=== PATIENT | female | born 1975 | race Caucasian/White ===

== ENCOUNTER → 2016-06-13 | Outpatient (CLI) | payer OTHER ==
--- NOTE | 2016-06-13 16:00 | REP ---
Clinical: Trauma to third digit. Technique: AP, lateral, bilateral oblique views of the right third digit. Findings: There is a nondisplaced fracture involving the terminal tuft which should be correlated clinically. Overlying soft tissue swelling suggested. No subcutaneous emphysema. Remainder of the osseous structures and joint spaces are intact. Impression: Nondisplaced fracture involving the terminal tuft 3rd digit. Signed by Nic Muñoz MD 06/13/2016 03:52 P
== END ==
LOC: M LRY 15:34
PROVIDERS: ATTEND Physician Assistant
DX: S62.662A Nondisplaced fracture of distal phalanx of right middle finger, initial encounter for closed fracture (principal); X58.XXXA Exposure to other specified factors, initial encounter; Y92.9 Unspecified place or not applicable

== ENCOUNTER 2016-06-22 08:49 | Emergency (ER) | payer OTHER ==
--- NOTE | 2016-06-22 09:45 | EDDOCDS ---
Nurse's Notes [facility] Name: Lucrecia So Age: 40 yrs Sex: Female : 1975 Arrival Date: 06/22/2016 Time: 08:49 Bed Triage 2 Private MD: Will Martínez MD Diagnosis: Nondisplaced fracture of distal phalanx of right middle finger-subsequent encounter Presentation: 06/22 08:56 Presenting complaint: Patient states: Worsening pain with numbness extending from right dwg middle finger down into right hand, broke right hand 06/13/16. Adult Sepsis Screening: The patient does not have new or worsening altered mentation. Patient's respiratory rate is less than 22. Systolic blood pressure is greater than 100. Patient has a qSOFA score of 0- Negative Sepsis Screen. Suicide/Homicide risk assessment- the patient denies having any suicidal and/or homicidal ideations and does not present with any other emotional, behavioral or mental health complaints. Status: The patient is a dependent. Transition of care: patient was not received from another setting of care. 08:56 Acuity: ANNI Level 4 dwg 08:56 Method Of Arrival: Walkin/Carried/Asstd dwg Triage Assessment: 09:05 General: Appears in no apparent distress, uncomfortable. Pain: Pain currently is 7 out dwg of 10 on a pain scale. HIV screening NA for this visit Offered previously. 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 aspirin 81 mg Oral tab 1 tab once daily (Last dose: 06/21/2016 20:00) 2. Calcium + Vitamin D 600 mg calcium- 200 unit Oral tab daily (Last dose: 06/21/2016) 3. Flexeril 5 mg Oral tab 1 tab 3 times per day (Last dose: 06/20/2016) 4. Motrin 800 mg Oral tab 1 tab 3 times per day as needed (Last dose: 06/21/2016) 5. Tylenol 325 mg Oral tab 2 tabs as needed (Last dose: 06/21/2016) - PMHx: Lui's Palsy; TIA; Fibromyalgia; - PSHx: Hysterectomy; Cholecystectomy; Repair of deviated septum; Fusion C-5 C-6; Discectomy L1 L2; Breast augmentation; - Social history: Smoking status: Patient uses tobacco products, current every day smoker. No barriers to communication noted, The patient speaks fluent Armenian. - Family history: Not pertinent. - : The pt / caregiver states he / she is not on anticoagulants. Home medication list is obtained from the patient. - Exposure Risk Screening:: None identified. Screenin:43 Screening information is obtained from the patient. Fall risk: No risks identified. dw Assistance ADL's: requires no assistance with activities of daily living. Abuse/DV Screen: The patient / caregiver reports he/she is: not in a situation that causes fear, pain or injury. Nutritional screening: No deficits noted. Advance Directives: Currently, there is no health care proxy. There is no active DNR order. There is no living will. There is no Power of Illusionist. Advance directive information has not previously been placed in an [facility] medical record. Further advance directive information is declined. home support is adequate. Assessment: 09:42 General: Appears in no apparent distress, uncomfortable, Behavior is cooperative, dwg pleasant. Pain: Pain currently is 8 out of 10 on a pain scale. Neurological: Level of Consciousness is awake, alert, Oriented to person, place, time. Respiratory: Airway is patent Respiratory effort is even, unlabored, Respiratory pattern is regular, symmetrical. Musculoskeletal: Circulation, motion, and sensation intact Capillary refill < 3 seconds Range of motion limited in DIP of left middle finger and PIP of left middle finger Swelling and pain to right middle finger. Vital Signs: 09:05 BP 144 / 84; Pulse 84; Resp 16; Temp 98.0(T); Pulse Ox 98% on R/A; Weight 64.41 kg; g Height 5 ft. 7 in. (170.18 cm); Pain 8/10; 09:05 Body Mass Index 22.24 (64.41 kg, 170.18 cm) [facility] Vitals: 09:05 Log In Time: June 22, 2016 at 08:47. [facility] ED Course: 08:51 Patient visited by Jovany Hicks. mm15 08:51 Patient moved to Waiting mm15 08:52 Will Martínez is Private Physician. mm15 08:53 Patient moved to Triage 2 [facility] 09:00 Triage Initiated dwg 09:03 [facility] ar2 09:03 Sumeet Mary MD is Attending Physician. ar2 09:03 Patient visited by Fernando Mitchell PA-C. ar2 09:39 [facility] Payment Agreement was scanned into [employer] and attached to record. mm15 09:44 The patient / caregiver is instructed regarding the plan of care and ED course. dwg 09:44 No IV's were initiated during this patient's visit. No procedures done that require dwg assistance. Order Results: There are currently no results for this order. Outcome: 09:18 Discharge ordered by Provider. ar2 09:43 Discharge Assessment: Patient awake, alert and oriented x 3. No cognitive and/or dwg functional deficits noted. Patient verbalized understanding of disposition instructions. patient administered narcotics - no. The following High Risk Discharge criteria are identified: None. Discharged to home ambulatory. Condition: good Condition: stable. No special radiology studies were completed. Property sent home with patient. 09:45 Patient left the ED. dwg Signatures: Adryan Vaughn RN RN dwg Fernando Mitchell PA-C PA-C ar2 Jovany Hicks mm15 MTDIveth
--- NOTE | 2016-06-22 09:45 | EDDOCDS ---
Physician Documentation [facility] Name: Lucrecia So Age: 40 yrs Sex: Female : 1975 Arrival Date: 06/22/2016 Time: 08:49 Bed Triage 2 Private MD: Will Martínez MD Disposition: 06/22/16 09:18 Discharged to Home/Self Care. Impression: Nondisplaced fracture of distal phalanx of right middle finger - subsequent encounter. - Condition is Stable. - Discharge Instructions: Finger Fracture. - Prescriptions for Ultram 50 mg Oral Tablet - take 1 tablet by ORAL route every 6 hours As needed MDD: 4 tabs; 20 tablet. - Medication Reconciliation, Local Pharmacy Hours, Work Release Form - 3 day form. - Follow up: Private Physician; When: Call to arrange an appointment; Reason: Recheck today's complaints, Continuance of care. - Problem is an ongoing problem. - Symptoms are unchanged. - Notes: DO NOT TAKE FLEXERIL TAKING ULTRAM Historical: - Allergies: Bactrim; GABAPENTIN; Morphine; PENICILLINS; Vancomycin; - Home Meds: 1. aspirin 81 mg Oral tab 1 tab once daily (Last dose: 06/21/2016 20:00) 2. Calcium + Vitamin D 600 mg calcium- 200 unit Oral tab daily (Last dose: 06/21/2016) 3. Flexeril 5 mg Oral tab 1 tab 3 times per day (Last dose: 06/20/2016) 4. Motrin 800 mg Oral tab 1 tab 3 times per day as needed (Last dose: 06/21/2016) 5. Tylenol 325 mg Oral tab 2 tabs as needed (Last dose: 06/21/2016) - PMHx: Lui's Palsy; TIA; Fibromyalgia; - PSHx: Hysterectomy; Cholecystectomy; Repair of deviated septum; Fusion C-5 C-6; Discectomy L1 L2; Breast augmentation; - Social history: Smoking status: Patient uses tobacco products, current every day smoker. No barriers to communication noted, The patient speaks fluent Divehi. - Family history: Not pertinent. - : The pt / caregiver states he / she is not on anticoagulants. Home medication list is obtained from the patient. - Exposure Risk Screening:: None identified. 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 7 in. (170.18 cm); Pain 8/10; 09:05 Body Mass Index 22.24 (64.41 kg, 170.18 cm) dwg MDM: 09:28 Financial registration complete. mm15 09:39 [facility] Payment Agreement was scanned into [employer] and attached to record. mm15 Signatures: Adryan Vaughn, RN RN dwg Fernando Mitchell PA-C PA-C ar2 Jovany Hicks mm15 The chart was reviewed and I authenticate all verbal orders and agree with the evaluation and treatment provided.Attachments: 09:39 [facility] Payment Agreement mm15 MTDD
--- NOTE | 2016-06-24 10:46 | EDDOCDS ---
Physician Documentation [facility] Name: Lucrecia So Age: 40 yrs Sex: Female : 1975 Arrival Date: 06/22/2016 Time: 08:49 Bed Triage 2 Private MD: Will Martínez MD Disposition: 06/22/16 09:18 Discharged to Home/Self Care. Impression: Nondisplaced fracture of distal phalanx of right middle finger - subsequent encounter. - Condition is Stable. - Discharge Instructions: Finger Fracture. - Prescriptions for Ultram 50 mg Oral Tablet - take 1 tablet by ORAL route every 6 hours As needed MDD: 4 tabs; 20 tablet. - Medication Reconciliation, Local Pharmacy Hours, Work Release Form - 3 day form. - Follow up: Private Physician; When: Call to arrange an appointment; Reason: Recheck today's complaints, Continuance of care. - Problem is an ongoing problem. - Symptoms are unchanged. - Notes: DO NOT TAKE FLEXERIL TAKING ULTRAM Historical: - Allergies: Bactrim; GABAPENTIN; Morphine; PENICILLINS; Vancomycin; - Home Meds: 1. aspirin 81 mg Oral tab 1 tab once daily (Last dose: 06/21/2016 20:00) 2. Calcium + Vitamin D 600 mg calcium- 200 unit Oral tab daily (Last dose: 06/21/2016) 3. Flexeril 5 mg Oral tab 1 tab 3 times per day (Last dose: 06/20/2016) 4. Motrin 800 mg Oral tab 1 tab 3 times per day as needed (Last dose: 06/21/2016) 5. Tylenol 325 mg Oral tab 2 tabs as needed (Last dose: 06/21/2016) - PMHx: Lui's Palsy; TIA; Fibromyalgia; - PSHx: Hysterectomy; Cholecystectomy; Repair of deviated septum; Fusion C-5 C-6; Discectomy L1 L2; Breast augmentation; - Social history: Smoking status: Patient uses tobacco products, current every day smoker. No barriers to communication noted, The patient speaks fluent Upper Sorbian. - Family history: Not pertinent. - : The pt / caregiver states he / she is not on anticoagulants. Home medication list is obtained from the patient. - Exposure Risk Screening:: None identified. 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 7 in. (170.18 cm); Pain 8/10; 09:05 Body Mass Index 22.24 (64.41 kg, 170.18 cm) dwg MDM: 09:28 Financial registration complete. mm15 09:39 [facility] Payment Agreement was scanned into [employer] and attached to record. mm15 09:53 [facility] Payment Agreement was scanned into [employer] and attached to record. mm15 14:27 T-Sheet-- Draft Copy was scanned into [employer] and attached to record. gb Signatures: Adryan Vaughn RN RN dw Greer Erickson, Reg Reg gb Fernando Mitchell PA-C PA-C ar2 Jovany Hicks mm15 The chart was reviewed and I authenticate all verbal orders and agree with the evaluation and treatment provided.Attachments: 09:53 [facility] Payment Agreement mm15 14:27 T-Sheet-- Draft Copy gb Chart Complete MTDD
--- NOTE | 2016-06-24 10:46 | EDDOCDS ---
Nurse's Notes [facility] Name: Lucrecia So Age: 40 yrs Sex: Female : 1975 Arrival Date: 06/22/2016 Time: 08:49 Bed Triage 2 Private MD: Will Martínez MD Diagnosis: Nondisplaced fracture of distal phalanx of right middle finger-subsequent encounter Presentation: 06/22 08:56 Presenting complaint: Patient states: Worsening pain with numbness extending from right dwg middle finger down into right hand, broke right hand 06/13/16. Adult Sepsis Screening: The patient does not have new or worsening altered mentation. Patient's respiratory rate is less than 22. Systolic blood pressure is greater than 100. Patient has a qSOFA score of 0- Negative Sepsis Screen. Suicide/Homicide risk assessment- the patient denies having any suicidal and/or homicidal ideations and does not present with any other emotional, behavioral or mental health complaints. Status: The patient is a dependent. Transition of care: patient was not received from another setting of care. 08:56 Acuity: ANNI Level 4 dwg 08:56 Method Of Arrival: Walkin/Carried/Asstd dwg Triage Assessment: 09:05 General: Appears in no apparent distress, uncomfortable. Pain: Pain currently is 7 out dwg of 10 on a pain scale. HIV screening NA for this visit Offered previously. 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 aspirin 81 mg Oral tab 1 tab once daily (Last dose: 06/21/2016 20:00) 2. Calcium + Vitamin D 600 mg calcium- 200 unit Oral tab daily (Last dose: 06/21/2016) 3. Flexeril 5 mg Oral tab 1 tab 3 times per day (Last dose: 06/20/2016) 4. Motrin 800 mg Oral tab 1 tab 3 times per day as needed (Last dose: 06/21/2016) 5. Tylenol 325 mg Oral tab 2 tabs as needed (Last dose: 06/21/2016) - PMHx: Lui's Palsy; TIA; Fibromyalgia; - PSHx: Hysterectomy; Cholecystectomy; Repair of deviated septum; Fusion C-5 C-6; Discectomy L1 L2; Breast augmentation; - Social history: Smoking status: Patient uses tobacco products, current every day smoker. No barriers to communication noted, The patient speaks fluent Sinhala. - Family history: Not pertinent. - : The pt / caregiver states he / she is not on anticoagulants. Home medication list is obtained from the patient. - Exposure Risk Screening:: None identified. Screenin:43 Screening information is obtained from the patient. Fall risk: No risks identified. dw Assistance ADL's: requires no assistance with activities of daily living. Abuse/DV Screen: The patient / caregiver reports he/she is: not in a situation that causes fear, pain or injury. Nutritional screening: No deficits noted. Advance Directives: Currently, there is no health care proxy. There is no active DNR order. There is no living will. There is no Power of Glass Installer Technician. Advance directive information has not previously been placed in an [facility] medical record. Further advance directive information is declined. home support is adequate. Assessment: 09:42 General: Appears in no apparent distress, uncomfortable, Behavior is cooperative, dwg pleasant. Pain: Pain currently is 8 out of 10 on a pain scale. Neurological: Level of Consciousness is awake, alert, Oriented to person, place, time. Respiratory: Airway is patent Respiratory effort is even, unlabored, Respiratory pattern is regular, symmetrical. Musculoskeletal: Circulation, motion, and sensation intact Capillary refill < 3 seconds Range of motion limited in DIP of left middle finger and PIP of left middle finger Swelling and pain to right middle finger. Vital Signs: 09:05 BP 144 / 84; Pulse 84; Resp 16; Temp 98.0(T); Pulse Ox 98% on R/A; Weight 64.41 kg; g Height 5 ft. 7 in. (170.18 cm); Pain 8/10; 09:05 Body Mass Index 22.24 (64.41 kg, 170.18 cm) [facility] Vitals: 09:05 Log In Time: June 22, 2016 at 08:47. [facility] ED Course: 08:51 Patient visited by Jovany Hicks. mm15 08:51 Patient moved to Waiting mm15 08:52 Will Martínez is Private Physician. mm15 08:53 Patient moved to Triage 2 [facility] 09:00 Triage Initiated dwg 09:03 [facility] ar2 09:03 Sumeet Mary MD is Attending Physician. ar2 09:03 Patient visited by Fernando Mitchell PA-C. ar2 09:39 [facility] Payment Agreement was scanned into [employer] and attached to record. mm15 09:44 The patient / caregiver is instructed regarding the plan of care and ED course. dwg 09:44 No IV's were initiated during this patient's visit. No procedures done that require dwg assistance. 09:53 [facility] Payment Agreement was scanned into [employer] and attached to record. mm15 14:27 T-Sheet-- Draft Copy was scanned into [employer] and attached to record. gb Order Results: There are currently no results for this order. Outcome: 09:18 Discharge ordered by Provider. ar2 09:43 Discharge Assessment: Patient awake, alert and oriented x 3. No cognitive and/or dwg functional deficits noted. Patient verbalized understanding of disposition instructions. patient administered narcotics - no. The following High Risk Discharge criteria are identified: None. Discharged to home ambulatory. Condition: good Condition: stable. No special radiology studies were completed. Property sent home with patient. 09:45 Patient left the ED. dwg Signatures: Adryan Vaughn, RN RN dwg Greer Erickson, Reg Reg Fernando Mitchell PA-C PA-C ar2 Jovany Hicks mm15 Chart Complete MTDD
--- NOTE | 2016-06-24 10:46 | EDDOCDS ---
Physician Documentation [facility] Name: Lucrecia So Age: 40 yrs Sex: Female : 1975 Arrival Date: 06/22/2016 Time: 08:49 Bed Triage 2 Private MD: Will Martínez MD Disposition: 06/22/16 09:18 Discharged to Home/Self Care. Impression: Nondisplaced fracture of distal phalanx of right middle finger - subsequent encounter. - Condition is Stable. - Discharge Instructions: Finger Fracture. - Prescriptions for Ultram 50 mg Oral Tablet - take 1 tablet by ORAL route every 6 hours As needed MDD: 4 tabs; 20 tablet. - Medication Reconciliation, Local Pharmacy Hours, Work Release Form - 3 day form. - Follow up: Private Physician; When: Call to arrange an appointment; Reason: Recheck today's complaints, Continuance of care. - Problem is an ongoing problem. - Symptoms are unchanged. - Notes: DO NOT TAKE FLEXERIL TAKING ULTRAM Historical: - Allergies: Bactrim; GABAPENTIN; Morphine; PENICILLINS; Vancomycin; - Home Meds: 1. aspirin 81 mg Oral tab 1 tab once daily (Last dose: 06/21/2016 20:00) 2. Calcium + Vitamin D 600 mg calcium- 200 unit Oral tab daily (Last dose: 06/21/2016) 3. Flexeril 5 mg Oral tab 1 tab 3 times per day (Last dose: 06/20/2016) 4. Motrin 800 mg Oral tab 1 tab 3 times per day as needed (Last dose: 06/21/2016) 5. Tylenol 325 mg Oral tab 2 tabs as needed (Last dose: 06/21/2016) - PMHx: Lui's Palsy; TIA; Fibromyalgia; - PSHx: Hysterectomy; Cholecystectomy; Repair of deviated septum; Fusion C-5 C-6; Discectomy L1 L2; Breast augmentation; - Social history: Smoking status: Patient uses tobacco products, current every day smoker. No barriers to communication noted, The patient speaks fluent Tajik. - Family history: Not pertinent. - : The pt / caregiver states he / she is not on anticoagulants. Home medication list is obtained from the patient. - Exposure Risk Screening:: None identified. 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 7 in. (170.18 cm); Pain 8/10; 09:05 Body Mass Index 22.24 (64.41 kg, 170.18 cm) dwg MDM: 09:28 Financial registration complete. mm15 09:39 [facility] and attached to record. mm15 09:53 [facility] Payment Agreement was scanned into [employer] and attached to record. mm15 14:27 T-Sheet-- Draft Copy was scanned into [employer] and attached to record. gb Signatures: Adryan Vaughn RN RN dw Greer Erickson, Reg Reg gb Fernando Mitchell PA-C PA-C ar2 Jovany Hicks mm15 The chart was reviewed and I authenticate all verbal orders and agree with the evaluation and treatment provided.Attachments: 09:53 [facility] Payment Agreement mm15 14:27 T-Sheet-- Draft Copy gb Chart Complete MTDD
== END 2016-06-22 09:54 | disposition home or self-care (01) ==
LOC: M ED 08:49
DX: S62.642D Nondisplaced fracture of proximal phalanx of right middle finger, subsequent encounter for fracture with routine healing (principal); R20.2 Paresthesia of skin; M25.541 Pain in joints of right hand; X58.XXXD Exposure to other specified factors, subsequent encounter; Y92.89 Other specified places as the place of occurrence of the external cause; M79.7 Fibromyalgia; Z86.73 Personal history of transient ischemic attack (TIA), and cerebral infarction without residual deficits; Z79.899 Other long term (current) drug therapy; Z79.82 Long term (current) use of aspirin; F17.200 Nicotine dependence, unspecified, uncomplicated

== ENCOUNTER 2016-07-01 13:19 | Emergency (ER) | payer OTHER ==
[2016-07-01] MEDS ORDERED: ONDANSETRON 4MG/2ML VIAL (J2405) As Ordered ONE (15:32)
[2016-07-01] MEDS ORDERED: KETOROLAC 30 MG/ML VIAL (J1885) As Ordered ONE (15:32)
[2016-07-01 15:40] LABS: BASO # 0.2 K/mm3 (0.0-0.2); BASO % 1.9 % (0.0-1.0); EOS # 0.4 K/mm3 (0.0-0.50); EOS % 4.2 % (0.0-3.0); LARGE UNSTAINED CELL # 0.1 K/mm3 (0.0-0.4); LARGE UNSTAINED CELL % 1.3 % (0.0-4.0); LYMPH # 2.5 K/mm3 (1.5-4.5); LYMPH % 27.6 % (24.0-44.0); MEAN CORPUSCULAR HEMOGLOBIN 30.8 pg (27.0-33.0); MEAN CORPUSCULAR VOLUME 90.6 fl (80.0-96.0); MONO # 0.4 K/mm3 (0.0-0.8); MONO % 4.9 % (0.0-5.0); NEUTROPHILS # 5.2 K/mm3 (1.8-7.7); NEUTROPHILS % 60.1 % (36.0-66.0); PLATELET COUNT, AUTOMATED 262 k/mm3 (150-450); RED CELL DISTRIBUTION WIDTH 12.9 % (11.5-14.5); WHITE BLOOD COUNT 8.6 K/mm3 (4.0-10.0)
[2016-07-01 16:01] LABS: ALBUMIN 4.2 GM/DL (3.2-5.2); ALBUMIN/GLOBULIN RATIO 1.27 (1.00-1.93); ALKALINE PHOSPHATASE 100 U/L (45-117); ALT/SGPT 19 U/L (12-78); AMYLASE 50 U/L (25-115); ANION GAP 6 MEQ/L (8-16); AST/SGOT 16 U/L (15-37); BILIRUBIN,DIRECT < 0.1 MG/DL (0.0-0.2); BILIRUBIN,TOTAL 0.3 MG/DL (0.2-1.0); BLOOD UREA NITROGEN 13 MG/DL (7-18); CALCIUM LEVEL 9.1 MG/DL (8.5-10.1); CARBON DIOXIDE LEVEL 27 MEQ/L (21-32); CHLORIDE LEVEL 109 MEQ/L (98-107); CREATININE FOR GFR 0.76 MG/DL (0.55-1.02); GLOMERULAR FILTRATION RATE > 60.0 (>58); GLUCOSE, FASTING 104 MG/DL (70-105); POTASSIUM SERUM 4.2 MEQ/L (3.5-5.1); SODIUM LEVEL 142 MEQ/L (136-145); TOTAL PROTEIN 7.5 GM/DL (6.4-8.2)
--- NOTE | 2016-07-01 16:38 | EDDOCDS ---
Physician Documentation [facility] Name: Lucrecia So Age: 40 yrs Sex: Female : 1975 Arrival Date: 07/01/2016 Time: 13:19 Bed I5 / M5 Private MD: Will Martínez MD Disposition: 07/01/16 16:27 Discharged to Home/Self Care. Impression: Upper abdominal pain, unspecified - with Flank Pain. - Condition is Stable. - Discharge Instructions: Abdominal Pain, Adult. - Prescriptions for Bentyl 20 mg Oral Tablet - take 1 tablet by ORAL route every 6 hours As needed; 20 tablet. ZOFRAN ODT 4 mg - dissolve 1 tablet by ORAL route 4 times per day As needed do not chew, do not swallow whole; 10 tablet. Protonix 40 mg Oral Tablet - take 1 tablet by ORAL route once daily; 30 tablet. - Medication Reconciliation, Local Pharmacy Hours form. - Follow up: Will Martínez; When: 1 - 2 days; Reason: Recheck today's complaints, Continuance of care. Follow up: Emergency Department; Reason: Worsening of conditions. - Problem is new. - Symptoms have improved. Historical: - Allergies: Bactrim (itching); GABAPENTIN (itching); Morphine (Upset stomach, Vomit); PENICILLINS (Anaphylaxis); Vancomycin (red man syndrome); - Home Meds: 1. aspirin 81 mg Oral tab 1 tab once daily 2. Calcium + Vitamin D 600 mg calcium- 200 unit Oral tab daily 3. Flexeril 5 mg Oral tab 1 tab 3 times per day 4. Motrin 800 mg Oral tab 1 tab 3 times per day as needed 5. Tylenol 325 mg Oral tab 2 tabs as needed - PMHx: Lui's Palsy; Fibromyalgia; TIA; - PSHx: Hysterectomy; Cholecystectomy; Repair of deviated septum; Fusion C-5 C-6; Discectomy L1 L2; Breast Augmentation; - Social history: Smoking status: Patient uses tobacco products, light tobacco smoker. No barriers to communication noted, The patient speaks fluent Swedish. - Family history: Not pertinent. - : The pt / caregiver states he / she is not on anticoagulants. Home medication list is obtained from the patient. - Exposure Risk Screening:: None identified. 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 7 in. (170.18 cm); 16:35 BP 148 / 70; Pulse 80; Resp 18; Temp 98.2(O); Pulse Ox 98% on R/A; Pain 3/10; jmb 13:21 Body Mass Index 21.77 (63.05 kg, 170.18 cm) elp MDM: 15:00 NS 0.9% 1000 ml IV at bolus once ordered. ef1 15:00 Ondansetron 4 mg IVP once ordered. ef1 15:00 ketorolac 30 mg IVP once ordered. ef1 15:00 IV Saline Lock ordered. ef1 15:00 Undress patient appropriately for examination ordered. ef1 15:01 Chest, 2 View (pa\E\lat) Ordered. EDMS 15:01 Amylase Ordered. EDMS 15:01 Basic Metabolic Profile Ordered. EDMS 15:01 CBC with Diff Ordered. EDMS 15:01 Lipase Ordered. EDMS 15:01 Liver Profile Ordered. EDMS 15:01 Urinalysis Ordered. EDMS 15:01 Urine Culture Ordered. EDMS 15:02 CT ABD & PELVIS: No Contrast Ordered. EDMS 15:03 NOTHING BY MOUTH+DIET ordered. EDMS 16:20 Basic Metabolic Profile Reviewed. ef1 16:20 CBC with Diff Reviewed. ef1 16:20 Urinalysis Reviewed. ef1 16:20 Amylase Reviewed. ef1 16:20 Lipase Reviewed. ef1 16:20 Liver Profile Reviewed. ef1 Administered Medications: 15:37 Drug: NS 0.9% 1000 ml [sodium chloride 0.9 % intravenous solution] Route: IV; Rate: jmb bolus; Site: left hand; 15:37 Drug: Ondansetron 4 mg [ondansetron HCl 2 mg/mL intravenous solution (2 mL)] Route: jmb IVP; Site: left hand; 15:38 Drug: ketorolac 30 mg [ketorolac 30 mg/mL (1 mL) injection solution (1 mL)] Route: IVP; jmb Site: left hand; Signatures: Dispatcher [employer] EDMS Magdalena Ramachandran PA-C PA-C ef1 Carrie Brooks,RN RN rs3 Edwar Townsend,RN RN jmb MTDD
--- NOTE | 2016-07-01 16:38 | EDDOCDS ---
Nurse's Notes [facility] Name: Lucrecia So Age: 40 yrs Sex: Female : 1975 Arrival Date: 07/01/2016 Time: 13:19 Bed I5 / M5 Private MD: Will Martínez MD Diagnosis: Upper abdominal pain, unspecified-with Flank Pain Presentation: 07/01 13:21 Presenting complaint: Patient states: woke up with right flank pain 3 days ago. feels rs3 like someone punched on her ribs. no known injury. pain radiates to right upper chest. no relief with ice/heat/Tylenol/Motrin. Adult Sepsis Screening: The patient does not have new or worsening altered mentation. Patient's respiratory rate is less than 22. Systolic blood pressure is greater than 100. Patient has a qSOFA score of 0- Negative Sepsis Screen. Suicide/Homicide risk assessment- the patient denies having any suicidal and/or homicidal ideations and does not present with any other emotional, behavioral or mental health complaints. 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 Transition of care: patient was not received from another setting of care. 13:21 Acuity: ANNI Level 4 rs3 13:21 Method Of Arrival: Walkin/Carried/Asstd rs3 Triage Assessment: 13:25 General: Appears in no apparent distress. Pain: Location: right lateral posterior rs3 chest. HIV screening NA for this visit Offered previously. 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 aspirin 81 mg Oral tab 1 tab once daily 2. Calcium + Vitamin D 600 mg calcium- 200 unit Oral tab daily 3. Flexeril 5 mg Oral tab 1 tab 3 times per day 4. Motrin 800 mg Oral tab 1 tab 3 times per day as needed 5. Tylenol 325 mg Oral tab 2 tabs as needed - PMHx: Lui's Palsy; Fibromyalgia; TIA; - PSHx: Hysterectomy; Cholecystectomy; Repair of deviated septum; Fusion C-5 C-6; Discectomy L1 L2; Breast Augmentation; - Social history: Smoking status: Patient uses tobacco products, light tobacco smoker. No barriers to communication noted, The patient speaks fluent Ukrainian. - Family history: Not pertinent. - : The pt / caregiver states he / she is not on anticoagulants. Home medication list is obtained from the patient. - Exposure Risk Screening:: None identified. Screenin:29 Screening information is obtained from the patient. Fall risk: No risks identified. jmb Assistance ADL's: requires no assistance with activities of daily living. Abuse/DV Screen: The patient / caregiver reports he/she is: not in a situation that causes fear, pain or injury. Nutritional screening: No deficits noted. home support is adequate. 16:35 Advance Directives: Currently, there is no health care proxy. There is no active DNR jmb order. There is no living will. There is no Power of Vulnerability Researcher. Assessment: 15:29 General: Appears uncomfortable, Behavior is appropriate for age, cooperative. Pain: jmb Location: chest and right upper quadrant Pain currently is 7 out of 10 on a pain scale. Neurological: Level of Consciousness is awake, alert, obeys commands, Oriented to person, place, time, Emergency Operator are equal bilaterally Speech is normal, Facial symmetry appears normal, Facial symmetry: tongue is midline. Cardiovascular: Capillary refill < 3 seconds Heart tones present Pulses are all present. Rhythm is regular. Respiratory: Airway is patent Respiratory effort is even, unlabored, Respiratory pattern is regular, symmetrical, Breath sounds are clear bilaterally. GI: Abdomen is non- distended Bowel sounds present X 4 quads. Abd is soft X 4 quads. Derm: Skin is pink, warm & dry. Musculoskeletal: Range of motion intact in all extremities. 16:35 General: Patient instructed on discharge instructions. Patient asked if there were any jmb questions regarding discharge, patient stated no. IV discontinued per hospital policy. Patient signed discharge instructions. Patient discharged in stable condition. . Vital Signs: 13:21 BP 155 / 84; Pulse 95; Resp 18; Temp 98.7; Pulse Ox 100% ; Weight 63.05 kg; Height 5 elp ft. 7 in. (170.18 cm); 16:35 BP 148 / 70; Pulse 80; Resp 18; Temp 98.2(O); Pulse Ox 98% on R/A; Pain 3/10; jmb 13:21 Body Mass Index 21.77 (63.05 kg, 170.18 cm) elp Vitals: 13:21 Log In Time: July 01, 2016 at 13:19. elp ED Course: 13:20 Patient visited by Megan Jacobsen PCA. elp 13:20 Patient moved to Waiting elp 13:20 Patient moved to Pre RCE elp 13:21 Will Martínez is Private Physician. elp 13:22 Patient visited by Megan Jacobsen PCA. elp 13:23 Triage Initiated rs3 14:34 Patient moved to Triage 3 kc3 14:50 Magdalena Ramachandran PA-C is PSYCHIATRICP. ef1 14:50 Saskia Morse MD is Attending Physician. ef1 14:54 Patient visited by Magdalena Ramachandran PA-C. ef1 15:03 Patient moved to I5 / M5 ar3 15:29 The patient / caregiver is instructed regarding the plan of care and ED course. jmb 15:29 Amylase Sent. jmb 15:29 Basic Metabolic Profile Sent. jmb 15:29 CBC with Diff Sent. jmb 15:29 Lipase Sent. jmb 15:29 Liver Profile Sent. jmb 15:29 Inserted saline lock: 24 gauge in left hand and blood collected. The patient tolerated jmb the procedure well. Labs drawn. (by ED staff). Sent per order to lab. 15:30 Patient visited by Magdalena Ramachandran PA-C. ef1 15:31 Patient visited by Edwar Townsend RN. jmb 15:55 Patient visited by Jessica Cedeño PCA. jlf 16:20 Patient visited by Magdalena Ramachandran PA-C. ef1 16:27 Will Martínez is Referral Physician. ef1 16:35 Discontinued lock intact, bleeding controlled, pressure dressing applied, No jmb redness/swelling at site. No procedures done that require assistance. Administered Medications: 15:37 Drug: NS 0.9% 1000 ml [sodium chloride 0.9 % intravenous solution] Route: IV; Rate: jmb bolus; Site: left hand; 15:37 Drug: Ondansetron 4 mg [ondansetron HCl 2 mg/mL intravenous solution (2 mL)] Route: jmb IVP; Site: left hand; 15:38 Drug: ketorolac 30 mg [ketorolac 30 mg/mL (1 mL) injection solution (1 mL)] Route: IVP; [place] Site: left hand; Order Results: Lab Order: Amylase; SPEC'07/01/16 15: Test: AMYLASE; Value: 50; Range: 25-115; Units: U/L; Status: F Lab Order: Basic Metabolic Profile; SPEC'07/01/16 15:27 Test: GLUCOSE, FASTING; Value: 104; Range: 70-105; Units: MG/DL; Status: F Test: BLOOD UREA NITROGEN; Value: 13; Range: 7-18; Units: MG/DL; Status: F Test: CREATININE FOR GFR; Value: 0.76; Range: 0.55-1.02; Units: MG/DL; Status: F Test: GLOMERULAR FILTRATION RATE; Value: > 60.0; Range: >58; Status: F Test: SODIUM LEVEL; Value: 142; Range: 136-145; Units: MEQ/L; Status: F Test: POTASSIUM SERUM; Value: 4.2; Range: 3.5-5.1; Units: MEQ/L; Status: F Test: CHLORIDE LEVEL; Value: 109; Range: 98-107; Abnormal: Above high normal; Units: MEQ/L; Status: F Test: CARBON DIOXIDE LEVEL; Value: 27; Range: 21-32; Units: MEQ/L; Status: F Test: ANION GAP; Value: 6; Range: 8-16; Abnormal: Below low normal; Units: MEQ/L; Status: F Test: CALCIUM LEVEL; Value: 9.1; Range: 8.5-10.1; Units: MG/DL; Status: F Test Note: ; Units are mL/min/1.73 m2 Chronic Kidney Disease Staging per NKF: Stage I & II GFR >=60 Normal to Mildly Decreased Stage III GFR 30-59 Moderately Decreased Stage IV GFR 15-29 Severely Decreased Stage V GFR <15 Very Little GFR Left ESRD GFR <15 on CUSTOMER SUPPORT ADVISOR Lab Order: CBC with Diff; SPEC07/01/16 15:27 Test: WHITE BLOOD COUNT; Value: 8.6; Range: 4.0-10.0; Units: K/mm3; Status: F Test: RED BLOOD COUNT; Value: 4.54; Range: 4.00-5.40; Units: M/mm3; Status: F Test: HEMOGLOBIN; Value: 14.0; Range: 12.0-16.0; Units: g/dl; Status: F Test: HEMATOCRIT; Value: 41.1; Range: 36.0-47.0; Units: %; Status: F Test: MEAN CORPUSCULAR VOLUME; Value: 90.6; Range: 80.0-96.0; Units: fl; Status: F Test: MEAN CORPUSCULAR HEMOGLOBIN; Value: 30.8; Range: 27.0-33.0; Units: pg; Status: F Test: MEAN CORPUSCULAR HGB CONC; Value: 34.0; Range: 32.0-36.5; Units: g/dl; Status: F Test: RED CELL DISTRIBUTION WIDTH; Value: 12.9; Range: 11.5-14.5; Units: %; Status: F Test: PLATELET COUNT, AUTOMATED; Value: 262; Range: 150-450; Units: k/mm3; Status: F Test: NEUTROPHILS %; Value: 60.1; Range: 36.0-66.0; Units: %; Status: F Test: LYMPH %; Value: 27.6; Range: 24.0-44.0; Units: %; Status: F Test: MONO %; Value: 4.9; Range: 0.0-5.0; Units: %; Status: F Test: EOS %; Value: 4.2; Range: 0.0-3.0; Abnormal: Above high normal; Units: %; Status: F Test: BASO %; Value: 1.9; Range: 0.0-1.0; Abnormal: Above high normal; Units: %; Status: F Test: LARGE UNSTAINED CELL %; Value: 1.3; Range: 0.0-4.0; Units: %; Status: F Test: NEUTROPHILS #; Value: 5.2; Range: 1.8-7.7; Units: K/mm3; Status: F Test: LYMPH #; Value: 2.5; Range: 1.5-4.5; Units: K/mm3; Status: F Test: MONO #; Value: 0.4; Range: 0.0-0.8; Units: K/mm3; Status: F Test: EOS #; Value: 0.4; Range: 0.0-0.50; Units: K/mm3; Status: F Test: BASO #; Value: 0.2; Range: 0.0-0.2; Units: K/mm3; Status: F Test: LARGE UNSTAINED CELL #; Value: 0.1; Range: 0.0-0.4; Units: K/mm3; Status: F Lab Order: Lipase; [facility] 07/01/16 15:27 Test: LIPASE; Value: 107; Range: 73-393; Units: U/L; Status: F Lab Order: Liver Profile; [facility] 07/01/16 15:27 Test: AST/SGOT; Value: 16; Range: 15-37; Units: U/L; Status: F Test: ALT/SGPT; Value: 19; Range: 12-78; Units: U/L; Status: F Test: ALKALINE PHOSPHATASE; Value: 100; Range: 45-117; Units: U/L; Status: F Test: BILIRUBIN,TOTAL; Value: 0.3; Range: 0.2-1.0; Units: MG/DL; Status: F Test: BILIRUBIN,DIRECT; Value: < 0.1; Range: 0.0-0.2; Units: MG/DL; Status: F Test: TOTAL PROTEIN; Value: 7.5; Range: 6.4-8.2; Units: GM/DL; Status: F Test: ALBUMIN; Value: 4.2; Range: 3.2-5.2; Units: GM/DL; Status: F Test: ALBUMIN/GLOBULIN RATIO; Value: 1.27; Range: 1.00-1.93; Status: F Lab Order: Urinalysis; [facility] 07/01/16 15:03 Test: APPEARANCE, URINE; Value: CLEAR; Range: CLEAR; Status: F Test: COLOR, URINE; Value: STRAW; Range: YELLOW; Status: F Test: PH,URINE; Value: 6.0; Range: 5.0-9.0; Units: UNITS; Status: F Test: SPECIFIC GRAVITY URINE AUTO; Value: 1.005; Range: 1.002-1.035; Status: F Test: PROTEIN, URINE AUTO; Value: NEGATIVE; Range: NEGATIVE; Units: mg/dL; Status: F Test: GLUCOSE, URINE (UA) AUTO; Value: NEGATIVE; Range: NEGATIVE; Units: mg/dL; Status: F Test: KETONE, URINE AUTO; Value: NEGATIVE; Range: NEGATIVE; Units: mg/dL; Status: F Test: UROBILINOGEN, URINE AUTO; Value: 0.2; Range: 0.0-2.0; Units: mg/dL; Status: F Test: BILIRUBIN, URINE AUTO; Value: NEGATIVE; Range: NEGATIVE; Status: F Test: NITRITE, URINE AUTO; Value: NEGATIVE; Range: NEGATIVE; Status: F Test: LEUKOCYTE ESTERASE, URINE AUTO; Value: NEGATIVE; Range: NEGATIVE; Status: F Test: BLOOD, URINE BLOOD; Value: NEGATIVE; Range: NEGATIVE; Status: F Test: WBC, URINE AUTO; Value: 1; Range: 0-3; Units: /HPF; Status: F Test: RBC, URINE AUTO; Value: 0; Range: 0-3; Units: /HPF; Status: F Test: BACTERIA, URINE AUTO; Value: 1+; Range: NEGATIVE; Abnormal: Above high normal; Status: F Test: SQUAMOUS EPITHELIAL CELL UR AU; Value: 1; Range: 0-6; Units: /HPF; Status: F Test: MUCUS, URINE; Value: SMALL; Range: NEGATIVE; Status: F Test: HYALINE CAST, URINE AUTO; Value: 0; Range: 0-1; Units: /LPF; Status: F Outcome: 16:27 Discharge ordered by Provider. ef1 16:35 Discharge Assessment: Patient awake, alert and oriented x 3. No cognitive and/or jmb functional deficits noted. Patient verbalized understanding of disposition instructions. Patient awake and alert. obeys commands, Oriented to person, place and time. Patient verbalized understanding of disposition instructions. Patient has no functional deficits. patient administered narcotics - no. The following High Risk Discharge criteria are identified: None. Discharged to home ambulatory. Condition: stable Condition: improved. Discharge instructions given to patient, Instructed on discharge instructions, follow up and referral plans. medication usage, Demonstrated understanding of instructions, medications, Pt was receptive of discharge instructions/ teaching. Prescriptions given X 3. Property sent home with patient. 16:37 CT Study completed. b 16:37 Patient left the ED. jmb Signatures: Magdalena Ramachandran PA-C PA-C ef1 Carrie Brooks RN RN rs3 Tesha Clay, SHIPPING LEAD PERSON SHIPPING LEAD PERSON ar3 Megan Jacobsen, SHIPPING LEAD PERSON SHIPPING LEAD PERSON Edwar Aiken,RN RN jmb Jessica Cedeño, SHIPPING LEAD PERSON SHIPPING LEAD PERSON jlVannesa Yost,RN RN kc3 MTDD
--- NOTE | 2016-07-02 11:24 | REP ---
PA and lateral chest: Comparison is 04/12/2016. The lung mcgarry are clear. The cardiac size is normal The volodymyr, mediastinum, and bony thorax are unremarkable. Impression: Negative PA and lateral chest. And orthopedic plate is again noted in the cervical spine, unchanged. Signed by Adryan Wright MD 07/01/2016 03:27 P
--- NOTE | 2016-07-02 11:24 | REP ---
CT abdomen pelvis without IV and oral contrast: There are no comparisons. The visualized lower lung mcgarry. Bilateral breast implants. The visualized lung mcgarry are otherwise unremarkable. The hepatic parenchyma is unremarkable. There are surgical clips in the gallbladder fossa. The pancreas and spleen are unremarkable. The adrenals are unremarkable. There is no hydronephrosis. No renal calculi. There is no perinephric stranding. The kidneys are unremarkable. There are no ureteral or bladder calculi. The aorta, bowel and mesentery are unremarkable. Pelvis: The appendix is unremarkable. There is no ascites or adenopathy. The pelvic bowel loops are unremarkable. Impression: Negative CT of the abdomen and pelvis. There is no hydronephrosis. There are no renal, ureteral or bladder calculi. Signed by Adryan Wright MD 07/01/2016 03:24 P
--- NOTE | 2016-07-03 17:39 | EDDOCDS ---
Physician Documentation [facility] Name: Lucrecia So Age: 40 yrs Sex: Female : 1975 Arrival Date: 07/01/2016 Time: 13:19 Bed I5 / M5 Private MD: Will Martínez MD Disposition: 07/01/16 16:27 Discharged to Home/Self Care. Impression: Upper abdominal pain, unspecified - with Flank Pain. - Condition is Stable. - Discharge Instructions: Abdominal Pain, Adult. - Prescriptions for Bentyl 20 mg Oral Tablet - take 1 tablet by ORAL route every 6 hours As needed; 20 tablet. ZOFRAN ODT 4 mg - dissolve 1 tablet by ORAL route 4 times per day As needed do not chew, do not swallow whole; 10 tablet. Protonix 40 mg Oral Tablet - take 1 tablet by ORAL route once daily; 30 tablet. - Medication Reconciliation, Local Pharmacy Hours form. - Follow up: Will Martínez; When: 1 - 2 days; Reason: Recheck today's complaints, Continuance of care. Follow up: Emergency Department; Reason: Worsening of conditions. - Problem is new. - Symptoms have improved. Historical: - Allergies: Bactrim (itching); GABAPENTIN (itching); Morphine (Upset stomach, Vomit); PENICILLINS (Anaphylaxis); Vancomycin (red man syndrome); - Home Meds: 1. aspirin 81 mg Oral tab 1 tab once daily 2. Calcium + Vitamin D 600 mg calcium- 200 unit Oral tab daily 3. Flexeril 5 mg Oral tab 1 tab 3 times per day 4. Motrin 800 mg Oral tab 1 tab 3 times per day as needed 5. Tylenol 325 mg Oral tab 2 tabs as needed - PMHx: Lui's Palsy; Fibromyalgia; TIA; - PSHx: Hysterectomy; Cholecystectomy; Repair of deviated septum; Fusion C-5 C-6; Discectomy L1 L2; Breast Augmentation; - Social history: Smoking status: Patient uses tobacco products, light tobacco smoker. No barriers to communication noted, The patient speaks fluent Sinhala. - Family history: Not pertinent. - : The pt / caregiver states he / she is not on anticoagulants. Home medication list is obtained from the patient. - Exposure Risk Screening:: None identified. 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 7 in. (170.18 cm); 16:35 BP 148 / 70; Pulse 80; Resp 18; Temp 98.2(O); Pulse Ox 98% on R/A; Pain 3/10; jmb 13:21 Body Mass Index 21.77 (63.05 kg, 170.18 cm) elp MDM: 15:00 NS 0.9% 1000 ml IV at bolus once ordered. ef1 15:00 Ondansetron 4 mg IVP once ordered. ef1 15:00 ketorolac 30 mg IVP once ordered. ef1 15:00 IV Saline Lock ordered. ef1 15:00 Undress patient appropriately for examination ordered. ef1 15:01 Chest, 2 View (pa\E\lat) Ordered. EDMS 15:01 Amylase Ordered. EDMS 15:01 Basic Metabolic Profile Ordered. EDMS 15:01 CBC with Diff Ordered. EDMS 15:01 Lipase Ordered. EDMS 15:01 Liver Profile Ordered. EDMS 15:01 Urinalysis Ordered. EDMS 15:01 Urine Culture Ordered. EDMS 15:02 CT ABD & PELVIS: No Contrast Ordered. EDMS 15:03 NOTHING BY MOUTH+DIET ordered. EDMS 16:20 Basic Metabolic Profile Reviewed. ef1 16:20 CBC with Diff Reviewed. ef1 16:20 Urinalysis Reviewed. ef1 16:20 Amylase Reviewed. ef1 16:20 Lipase Reviewed. ef1 16:20 Liver Profile Reviewed. ef1 16:41 Financial registration complete. zo 17:17 [facility] Payment Agreement was scanned into [employer] and attached to record. zo 21:47 T-Sheet-- Draft Copy was scanned into [employer] and attached to record. klr 07/02 12:18 Radiology Report was scanned into [employer] and attached to record. gb Administered Medications: 07/01 15:37 Drug: NS 0.9% 1000 ml [sodium chloride 0.9 % intravenous solution] Route: IV; Rate: jmb bolus; Site: left hand; 15:37 Drug: Ondansetron 4 mg [ondansetron HCl 2 mg/mL intravenous solution (2 mL)] Route: jmb IVP; Site: left hand; 15:38 Drug: ketorolac 30 mg [ketorolac 30 mg/mL (1 mL) injection solution (1 mL)] Route: IVP; amber Site: left hand; Signatures: Dispatcher [employer] EDGreer Beavers, Alcides Reg gb Abdi, Magdalena Flores, PRISCA PAJames ef1 Carrie Brooks RN RN rs3 Edwar Townsend RN RN jmb Redder, Kathie klr The chart was reviewed and I authenticate all verbal orders and agree with the evaluation and treatment provided.Attachments: 17:17 [facility] Payment Agreement zo 21:47 T-Sheet-- Draft Copy klr Chart Complete MTDD
--- NOTE | 2016-07-03 17:39 | EDDOCDS ---
Nurse's Notes [facility] Name: Lucrecia So Age: 40 yrs Sex: Female : 1975 Arrival Date: 07/01/2016 Time: 13:19 Bed I5 / M5 Private MD: Will Martínez MD Diagnosis: Upper abdominal pain, unspecified-with Flank Pain Presentation: 07/01 13:21 Presenting complaint: Patient states: woke up with right flank pain 3 days ago. feels rs3 like someone punched on her ribs. no known injury. pain radiates to right upper chest. no relief with ice/heat/Tylenol/Motrin. Adult Sepsis Screening: The patient does not have new or worsening altered mentation. Patient's respiratory rate is less than 22. Systolic blood pressure is greater than 100. Patient has a qSOFA score of 0- Negative Sepsis Screen. Suicide/Homicide risk assessment- the patient denies having any suicidal and/or homicidal ideations and does not present with any other emotional, behavioral or mental health complaints. Status: Patient is not a customer service coordinator or dependent. Transition of care: patient was not received from another setting of care. 13:21 Acuity: ANNI Level 4 rs3 13:21 Method Of Arrival: Walkin/Carried/Asstd rs3 Triage Assessment: 13:25 General: Appears in no apparent distress. Pain: Location: right lateral posterior rs3 chest. HIV screening NA for this visit Offered previously. 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 aspirin 81 mg Oral tab 1 tab once daily 2. Calcium + Vitamin D 600 mg calcium- 200 unit Oral tab daily 3. Flexeril 5 mg Oral tab 1 tab 3 times per day 4. Motrin 800 mg Oral tab 1 tab 3 times per day as needed 5. Tylenol 325 mg Oral tab 2 tabs as needed - PMHx: Lui's Palsy; Fibromyalgia; TIA; - PSHx: Hysterectomy; Cholecystectomy; Repair of deviated septum; Fusion C-5 C-6; Discectomy L1 L2; Breast Augmentation; - Social history: Smoking status: Patient uses tobacco products, light tobacco smoker. No barriers to communication noted, The patient speaks fluent Czech. - Family history: Not pertinent. - : The pt / caregiver states he / she is not on anticoagulants. Home medication list is obtained from the patient. - Exposure Risk Screening:: None identified. Screenin:29 Screening information is obtained from the patient. Fall risk: No risks identified. jmb Assistance ADL's: requires no assistance with activities of daily living. Abuse/DV Screen: The patient / caregiver reports he/she is: not in a situation that causes fear, pain or injury. Nutritional screening: No deficits noted. home support is adequate. 16:35 Advance Directives: Currently, there is no health care proxy. There is no active DNR jmb order. There is no living will. There is no Power of Sailing Master. Assessment: 15:29 General: Appears uncomfortable, Behavior is appropriate for age, cooperative. Pain: jmb Location: chest and right upper quadrant Pain currently is 7 out of 10 on a pain scale. Neurological: Level of Consciousness is awake, alert, obeys commands, Oriented to person, place, time, Radiation Oncology Nurse are equal bilaterally Speech is normal, Facial symmetry appears normal, Facial symmetry: tongue is midline. Cardiovascular: Capillary refill < 3 seconds Heart tones present Pulses are all present. Rhythm is regular. Respiratory: Airway is patent Respiratory effort is even, unlabored, Respiratory pattern is regular, symmetrical, Breath sounds are clear bilaterally. GI: Abdomen is non- distended Bowel sounds present X 4 quads. Abd is soft X 4 quads. Derm: Skin is pink, warm & dry. Musculoskeletal: Range of motion intact in all extremities. 16:35 General: Patient instructed on discharge instructions. Patient asked if there were any jmb questions regarding discharge, patient stated no. IV discontinued per hospital policy. Patient signed discharge instructions. Patient discharged in stable condition. . Vital Signs: 13:21 BP 155 / 84; Pulse 95; Resp 18; Temp 98.7; Pulse Ox 100% ; Weight 63.05 kg; Height 5 elp ft. 7 in. (170.18 cm); 16:35 BP 148 / 70; Pulse 80; Resp 18; Temp 98.2(O); Pulse Ox 98% on R/A; Pain 3/10; jmb 13:21 Body Mass Index 21.77 (63.05 kg, 170.18 cm) elp Vitals: 13:21 Log In Time: July 01, 2016 at 13:19. elp ED Course: 13:20 Patient visited by Megan Jacobsen PCA. elp 13:20 Patient moved to Waiting elp 13:20 Patient moved to Pre RCE elp 13:21 Will Martínez is Private Physician. elp 13:22 Patient visited by Megan Jacobsen PCA. elp 13:23 Triage Initiated rs3 14:34 Patient moved to Triage 3 kc3 14:50 [facility] ef1 14:50 Saskia Morse MD is Attending Physician. ef1 14:54 Patient visited by Magdalena Ramachandran PA-C. ef1 15:03 Patient moved to I5 / M5 ar3 15:29 The patient / caregiver is instructed regarding the plan of care and ED course. jmb 15:29 Amylase Sent. jmb 15:29 Basic Metabolic Profile Sent. jmb 15:29 CBC with Diff Sent. jmb 15:29 Lipase Sent. jmb 15:29 Liver Profile Sent. jmb 15:29 Inserted saline lock: 24 gauge in left hand and blood collected. The patient tolerated jmb the procedure well. Labs drawn. (by ED staff). Sent per order to lab. 15:30 Patient visited by Magdalena Ramachandran PA-C. ef1 15:31 Patient visited by Edwar Townsend RN. jmb 15:55 Patient visited by Jessica Cedeño PCA. jlf 16:20 Patient visited by Magdalena Ramachandran PA-C. ef1 16:27 Will Martínez is Referral Physician. ef1 16:35 Discontinued lock intact, bleeding controlled, pressure dressing applied, No jmb redness/swelling at site. No procedures done that require assistance. 17:17 [facility] [place] Payment Agreement was scanned into 36Kr and attached to record. zo 21:47 T-Sheet-- Draft Copy was scanned into 36Kr and attached to record. klr 07/02 11:53 CT ABD & PELVIS: No Contrast Returned. EDMS 11:53 Chest, 2 View (pa\E\lat) Returned. EDMS 12:18 Radiology Report was scanned into 36Kr and attached to record. gb Administered Medications: 07/01 15:37 Drug: NS 0.9% 1000 ml [sodium chloride 0.9 % intravenous solution] Route: IV; Rate: jmb bolus; Site: left hand; 15:37 Drug: Ondansetron 4 mg [ondansetron HCl 2 mg/mL intravenous solution (2 mL)] Route: jmb IVP; Site: left hand; 15:38 Drug: ketorolac 30 mg [ketorolac 30 mg/mL (1 mL) injection solution (1 mL)] Route: IVP; jmb Site: left hand; Order Results: Lab Order: Amylase; SPEC'M 07/01/16 15:27 Test: AMYLASE; Value: 50; Range: 25-115; Units: U/L; Status: F Lab Order: Basic Metabolic Profile; SPEC'M 07/01/16 15:27 Test: GLUCOSE, FASTING; Value: 104; Range: 70-105; Units: MG/DL; Status: F Test: BLOOD UREA NITROGEN; Value: 13; Range: 7-18; Units: MG/DL; Status: F Test: CREATININE FOR GFR; Value: 0.76; Range: 0.55-1.02; Units: MG/DL; Status: F Test: GLOMERULAR FILTRATION RATE; Value: > 60.0; Range: >58; Status: F Test: SODIUM LEVEL; Value: 142; Range: 136-145; Units: MEQ/L; Status: F Test: POTASSIUM SERUM; Value: 4.2; Range: 3.5-5.1; Units: MEQ/L; Status: F Test: CHLORIDE LEVEL; Value: 109; Range: 98-107; Abnormal: Above high normal; Units: MEQ/L; Status: F Test: CARBON DIOXIDE LEVEL; Value: 27; Range: 21-32; Units: MEQ/L; Status: F Test: ANION GAP; Value: 6; Range: 8-16; Abnormal: Below low normal; Units: MEQ/L; Status: F Test: CALCIUM LEVEL; Value: 9.1; Range: 8.5-10.1; Units: MG/DL; Status: F Test Note: ; Units are mL/min/1.73 m2 Chronic Kidney Disease Staging per NKF: Stage I & II GFR >=60 Normal to Mildly Decreased Stage III GFR 30-59 Moderately Decreased Stage IV GFR 15-29 Severely Decreased Stage V GFR <15 Very Little GFR Left ESRD GFR <15 on 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 Lab Order: CBC with Diff; SPEC'M 07/01/16 15:27 Test: WHITE BLOOD COUNT; Value: 8.6; Range: 4.0-10.0; Units: K/mm3; Status: F Test: RED BLOOD COUNT; Value: 4.54; Range: 4.00-5.40; Units: M/mm3; Status: F Test: HEMOGLOBIN; Value: 14.0; Range: 12.0-16.0; Units: g/dl; Status: F Test: HEMATOCRIT; Value: 41.1; Range: 36.0-47.0; Units: %; Status: F Test: MEAN CORPUSCULAR VOLUME; Value: 90.6; Range: 80.0-96.0; Units: fl; Status: F Test: MEAN CORPUSCULAR HEMOGLOBIN; Value: 30.8; Range: 27.0-33.0; Units: pg; Status: F Test: MEAN CORPUSCULAR HGB CONC; Value: 34.0; Range: 32.0-36.5; Units: g/dl; Status: F Test: RED CELL DISTRIBUTION WIDTH; Value: 12.9; Range: 11.5-14.5; Units: %; Status: F Test: PLATELET COUNT, AUTOMATED; Value: 262; Range: 150-450; Units: k/mm3; Status: F Test: NEUTROPHILS %; Value: 60.1; Range: 36.0-66.0; Units: %; Status: F Test: LYMPH %; Value: 27.6; Range: 24.0-44.0; Units: %; Status: F Test: MONO %; Value: 4.9; Range: 0.0-5.0; Units: %; Status: F Test: EOS %; Value: 4.2; Range: 0.0-3.0; Abnormal: Above high normal; Units: %; Status: F Test: BASO %; Value: 1.9; Range: 0.0-1.0; Abnormal: Above high normal; Units: %; Status: F Test: LARGE UNSTAINED CELL %; Value: 1.3; Range: 0.0-4.0; Units: %; Status: F Test: NEUTROPHILS #; Value: 5.2; Range: 1.8-7.7; Units: K/mm3; Status: F Test: LYMPH #; Value: 2.5; Range: 1.5-4.5; Units: K/mm3; Status: F Test: MONO #; Value: 0.4; Range: 0.0-0.8; Units: K/mm3; Status: F Test: EOS #; Value: 0.4; Range: 0.0-0.50; Units: K/mm3; Status: F Test: BASO #; Value: 0.2; Range: 0.0-0.2; Units: K/mm3; Status: F Test: LARGE UNSTAINED CELL #; Value: 0.1; Range: 0.0-0.4; Units: K/mm3; Status: F Lab Order: Lipase; [facility] 07/01/16 15:27 Test: LIPASE; Value: 107; Range: 73-393; Units: U/L; Status: F Lab Order: Liver Profile; [facility] 07/01/16 15:27 Test: AST/SGOT; Value: 16; Range: 15-37; Units: U/L; Status: F Test: ALT/SGPT; Value: 19; Range: 12-78; Units: U/L; Status: F Test: ALKALINE PHOSPHATASE; Value: 100; Range: 45-117; Units: U/L; Status: F Test: BILIRUBIN,TOTAL; Value: 0.3; Range: 0.2-1.0; Units: MG/DL; Status: F Test: BILIRUBIN,DIRECT; Value: < 0.1; Range: 0.0-0.2; Units: MG/DL; Status: F Test: TOTAL PROTEIN; Value: 7.5; Range: 6.4-8.2; Units: GM/DL; Status: F Test: ALBUMIN; Value: 4.2; Range: 3.2-5.2; Units: GM/DL; Status: F Test: ALBUMIN/GLOBULIN RATIO; Value: 1.27; Range: 1.00-1.93; Status: F Lab Order: Urinalysis; [facility] 07/01/16 15:03 Test: APPEARANCE, URINE; Value: CLEAR; Range: CLEAR; Status: F Test: COLOR, URINE; Value: STRAW; Range: YELLOW; Status: F Test: PH,URINE; Value: 6.0; Range: 5.0-9.0; Units: UNITS; Status: F Test: SPECIFIC GRAVITY URINE AUTO; Value: 1.005; Range: 1.002-1.035; Status: F Test: PROTEIN, URINE AUTO; Value: NEGATIVE; Range: NEGATIVE; Units: mg/dL; Status: F Test: GLUCOSE, URINE (UA) AUTO; Value: NEGATIVE; Range: NEGATIVE; Units: mg/dL; Status: F Test: KETONE, URINE AUTO; Value: NEGATIVE; Range: NEGATIVE; Units: mg/dL; Status: F Test: UROBILINOGEN, URINE AUTO; Value: 0.2; Range: 0.0-2.0; Units: mg/dL; Status: F Test: BILIRUBIN, URINE AUTO; Value: NEGATIVE; Range: NEGATIVE; Status: F Test: NITRITE, URINE AUTO; Value: NEGATIVE; Range: NEGATIVE; Status: F Test: LEUKOCYTE ESTERASE, URINE AUTO; Value: NEGATIVE; Range: NEGATIVE; Status: F Test: BLOOD, URINE BLOOD; Value: NEGATIVE; Range: NEGATIVE; Status: F Test: WBC, URINE AUTO; Value: 1; Range: 0-3; Units: /HPF; Status: F Test: RBC, URINE AUTO; Value: 0; Range: 0-3; Units: /HPF; Status: F Test: BACTERIA, URINE AUTO; Value: 1+; Range: NEGATIVE; Abnormal: Above high normal; Status: F Test: SQUAMOUS EPITHELIAL CELL UR AU; Value: 1; Range: 0-6; Units: /HPF; Status: F Test: MUCUS, URINE; Value: SMALL; Range: NEGATIVE; Status: F Test: HYALINE CAST, URINE AUTO; Value: 0; Range: 0-1; Units: /LPF; Status: F Lab Order: Urine Culture; SPEC'M 07/01/16 15:03 Test: URINE CULTURE; Value: <EXTERNAL COMMENT eCWMed> FULL REPORT IN LAB NOTES (eCW and Medent).; Status: F Test: URINE CULTURE; Value: URINE CULTURE RESULT NO GROWTH; Status: F Radiology Order: Chest, 2 View (pa\E\lat) Test: Chest, 2 View (pa\E\lat) REASON FOR EXAMINATION: Cough; PA and lateral chest:; ; Comparison is 04/12/2016.; ; The lung mcgarry are clear. The cardiac size is normal; ; The volodymyr, mediastinum, and bony thorax are unremarkable.; ; Impression:; ; Negative PA and lateral chest. And orthopedic plate is again noted in the; cervical spine, unchanged.; ; ; Signed by; Adryan Wright MD 07/01/2016 03:27 P; Radiology Order: CT ABD & PELVIS: No Contrast Test: CT ABD & PELVIS: No Contrast REASON FOR EXAMINATION: Renal colic; CT abdomen pelvis without IV and oral contrast:; ; There are no comparisons.; ; The visualized lower lung mcgarry. Bilateral breast implants. The visualized; lung mcgarry are otherwise unremarkable.; ; The hepatic parenchyma is unremarkable. There are surgical clips in the; gallbladder fossa. The pancreas and spleen are unremarkable. The adrenals are; unremarkable.; ; There is no hydronephrosis. No renal calculi. There is no perinephric; stranding. The kidneys are unremarkable.; ; There are no ureteral or bladder calculi.; ; The aorta, bowel and mesentery are unremarkable.; ; Pelvis:; ; The appendix is unremarkable. There is no ascites or adenopathy. The pelvic; bowel loops are unremarkable.; ; Impression:; ; Negative CT of the abdomen and pelvis. There is no hydronephrosis. There are no; renal, ureteral or bladder calculi.; ; ; Signed by; Adryan Wright MD 07/01/2016 03:24 P; Outcome: 16:27 Discharge ordered by Provider. ef1 16:35 Discharge Assessment: Patient awake, alert and oriented x 3. No cognitive and/or jmb functional deficits noted. Patient verbalized understanding of disposition instructions. Patient awake and alert. obeys commands, Oriented to person, place and time. Patient verbalized understanding of disposition instructions. Patient has no functional deficits. patient administered narcotics - no. The following High Risk Discharge criteria are identified: None. Discharged to home ambulatory. Condition: stable Condition: improved. Discharge instructions given to patient, Instructed on discharge instructions, follow up and referral plans. medication usage, Demonstrated understanding of instructions, medications, Pt was receptive of discharge instructions/ teaching. Prescriptions given X 3. Property sent home with patient. 16:37 CT Study completed. b 16:37 Patient left the ED. jmb Signatures: Dispatcher [employer] EDMS Greer Erickson, Reg Reg gb [place], Magdalena Flores, PA-C PA-C ef1 Carrie Brooks,RN RN rs3 Tesha Clay, MATH TEACHER MATH TEACHER ar3 Megan Jacobsen, MATH TEACHER MATH TEACHER elp Edwar Townsend,LILIBETH RN jmb [place]ala, [place], MATH TEACHER MATH TEACHER jlf Vannesa Cantu,LILIBETH RN kc3 Helga Adler Chart Complete MTDD
--- NOTE | 2016-07-03 17:39 | EDDOCDS ---
Physician Documentation [facility] Name: Lucrecia So Age: 40 yrs Sex: Female : 1975 Arrival Date: 07/01/2016 Time: 13:19 Bed I5 / M5 Private MD: Will Martínez MD Disposition: 07/01/16 16:27 Discharged to Home/Self Care. Impression: Upper abdominal pain, unspecified - with Flank Pain. - Condition is Stable. - Discharge Instructions: Abdominal Pain, Adult. - Prescriptions for Bentyl 20 mg Oral Tablet - take 1 tablet by ORAL route every 6 hours As needed; 20 tablet. ZOFRAN ODT 4 mg - dissolve 1 tablet by ORAL route 4 times per day As needed do not chew, do not swallow whole; 10 tablet. Protonix 40 mg Oral Tablet - take 1 tablet by ORAL route once daily; 30 tablet. - Medication Reconciliation, Local Pharmacy Hours form. - Follow up: Will Martínez; When: 1 - 2 days; Reason: Recheck today's complaints, Continuance of care. Follow up: Emergency Department; Reason: Worsening of conditions. - Problem is new. - Symptoms have improved. Historical: - Allergies: Bactrim (itching); GABAPENTIN (itching); Morphine (Upset stomach, Vomit); PENICILLINS (Anaphylaxis); Vancomycin (red man syndrome); - Home Meds: 1. aspirin 81 mg Oral tab 1 tab once daily 2. Calcium + Vitamin D 600 mg calcium- 200 unit Oral tab daily 3. Flexeril 5 mg Oral tab 1 tab 3 times per day 4. Motrin 800 mg Oral tab 1 tab 3 times per day as needed 5. Tylenol 325 mg Oral tab 2 tabs as needed - PMHx: Lui's Palsy; Fibromyalgia; TIA; - PSHx: Hysterectomy; Cholecystectomy; Repair of deviated septum; Fusion C-5 C-6; Discectomy L1 L2; Breast Augmentation; - Social history: Smoking status: Patient uses tobacco products, light tobacco smoker. No barriers to communication noted, The patient speaks fluent Upper Sorbian. - Family history: Not pertinent. - : The pt / caregiver states he / she is not on anticoagulants. Home medication list is obtained from the patient. - Exposure Risk Screening:: None identified. SIDE FRAMER: 07/01 13:25 LMP N/A - Hysterectomy rs3 Vital Signs: 13:21 BP 155 / 84; Pulse 95; Resp 18; Temp 98.7; Pulse Ox 100% ; Weight 63.05 kg / 139 lbs; elp Height 5 ft. 7 in. (170.18 cm); 16:35 BP 148 / 70; Pulse 80; Resp 18; Temp 98.2(O); Pulse Ox 98% on R/A; Pain 3/10; jmb 13:21 Body Mass Index 21.77 (63.05 kg, 170.18 cm) elp MDM: 15:00 NS 0.9% 1000 ml IV at bolus once ordered. ef1 15:00 Ondansetron 4 mg IVP once ordered. ef1 15:00 ketorolac 30 mg IVP once ordered. ef1 15:00 IV Saline Lock ordered. ef1 15:00 Undress patient appropriately for examination ordered. ef1 15:01 Chest, 2 View (pa\E\lat) Ordered. EDMS 15:01 Amylase Ordered. EDMS 15:01 Basic Metabolic Profile Ordered. EDMS 15:01 CBC with Diff Ordered. EDMS 15:01 Lipase Ordered. EDMS 15:01 Liver Profile Ordered. EDMS 15:01 Urinalysis Ordered. EDMS 15:01 Urine Culture Ordered. EDMS 15:02 CT ABD & PELVIS: No Contrast Ordered. EDMS 15:03 NOTHING BY MOUTH+DIET ordered. EDMS 16:20 Basic Metabolic Profile Reviewed. ef1 16:20 CBC with Diff Reviewed. ef1 16:20 Urinalysis Reviewed. ef1 16:20 Amylase Reviewed. ef1 16:20 Lipase Reviewed. ef1 16:20 Liver Profile Reviewed. ef1 16:41 Financial registration complete. zo 17:17 [facility] [place] was scanned into BiTaksi and attached to record. zo 21:47 T-Sheet-- Draft Copy was scanned into [employer] and attached to record. klr 07/02 12:18 Radiology Report was scanned into BiTaksi and attached to record. gb Administered Medications: 07/01 15:37 Drug: NS 0.9% 1000 ml [sodium chloride 0.9 % intravenous solution] Route: IV; Rate: jmb bolus; Site: left hand; 15:37 Drug: Ondansetron 4 mg [ondansetron HCl 2 mg/mL intravenous solution (2 mL)] Route: jmb IVP; Site: left hand; 15:38 Drug: ketorolac 30 mg [ketorolac 30 mg/mL (1 mL) injection solution (1 mL)] Route: IVP; amber Site: left hand; Signatures: Dispatcher MedHost EDGreer Beavers, Alcides Reg gb Abdi, Magdalena Flores, PRISCA PAJames ef1 Carrie Brooks RN RN rs3 Edwar Townsend RN RN jmb Redder, Kathie klr The chart was reviewed and I authenticate all verbal orders and agree with the evaluation and treatment provided.Attachments: 17:17 [facility] Agreement zo 21:47 T-Sheet-- Draft Copy klr Chart Complete MTDD
== END 2016-07-01 16:37 | disposition home or self-care (01) ==
LOC: M ED 13:19
DX: R10.10 Upper abdominal pain, unspecified (principal); M79.7 Fibromyalgia; Z86.73 Personal history of transient ischemic attack (TIA), and cerebral infarction without residual deficits; F17.210 Nicotine dependence, cigarettes, uncomplicated; Z79.899 Other long term (current) drug therapy; Z79.82 Long term (current) use of aspirin; Z88.1 Allergy status to other antibiotic agents; Z88.8 Allergy status to other drugs, medicaments and biological substances; Z88.5 Allergy status to narcotic agent; Z88.0 Allergy status to penicillin
CPT/HCPCS: 36415; 71020; 74176; 80048; 80076; 81001; 82150; 83690; 85025; 87086; 96374; 96375; 99284; J1885; J2405

== ENCOUNTER → 2016-12-26 | Outpatient (CLI) | payer OTHER ==
[~2016-12-26] MED LIST: ASPI81TA85 PO; NAPR500T PO; PERC5TAB12 PO
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
== END ==
LOC: M PAIN 11:20
PROVIDERS: ATTEND Nurse Practitioner Family
DX: G89.29 Other chronic pain (principal); M54.40 Lumbago with sciatica, unspecified side; F17.210 Nicotine dependence, cigarettes, uncomplicated; J30.2 Other seasonal allergic rhinitis; Z88.0 Allergy status to penicillin; Z88.1 Allergy status to other antibiotic agents; Z88.5 Allergy status to narcotic agent; Z88.8 Allergy status to other drugs, medicaments and biological substances; Z79.82 Long term (current) use of aspirin; Z79.1 Long term (current) use of non-steroidal anti-inflammatories (NSAID); Z79.899 Other long term (current) drug therapy

== ENCOUNTER → 2017-01-15 | Outpatient (CLI) | payer OTHER ==
--- NOTE | 2017-02-07 01:06 | ECWPNPC ---
PATIENT NAME: LIANNA RODRIGUES : 1975 GENDER: FEMALE VISIT DATE: 01/15/2017 DISCHARGE DATE: 01/15/17 1411 VISIT LOCKED DATE TIME: PHYSICIAN: CANDY CAMPOVERDE RESOURCE: CANDY CAMPOVERDE REASON FOR APPOINTMENT 1. 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 PAIN THE PATIENT DESCRIBES THE PAIN... FALL RISK SCREENING: SCREENING :NO FALLS IN THE PAST YEAR :NO FALLS IN THE PAST YEAR :NO FALLS IN THE PAST YEAR :NO FALLS IN THE PAST YEAR :NO FALLS IN THE PAST YEAR :NO FALLS IN THE PAST YEAR SCREENING :NO FALLS IN THE PAST YEAR :NO FALLS IN THE PAST YEAR :NO FALLS IN THE PAST YEAR :NO FALLS IN THE PAST YEAR :NO FALLS IN THE PAST YEAR :NO FALLS IN THE PAST YEAR SCREENING :NO FALLS IN THE PAST YEAR :NO FALLS IN THE PAST YEAR :NO FALLS IN THE PAST YEAR :NO FALLS IN THE PAST YEAR :NO FALLS IN THE PAST YEAR :NO FALLS IN THE PAST YEAR SCREENING :NO FALLS IN THE PAST YEAR :NO FALLS IN THE PAST YEAR :NO FALLS IN THE PAST YEAR :NO FALLS IN THE PAST YEAR :NO FALLS IN THE PAST YEAR :NO FALLS IN THE PAST YEAR SCREENING :NO FALLS IN THE PAST YEAR :NO FALLS IN THE PAST YEAR :NO FALLS IN THE PAST YEAR :NO FALLS IN THE PAST YEAR :NO FALLS IN THE PAST YEAR :NO FALLS IN THE PAST YEAR PAIN SCREENING: PATIENT HAS A COMPLAINT OF ACUTE OR CHRONIC PAIN :YES CURRENT MEDICATIONS TAKING TYLENOL 500 MG- 2 TABLETS ORALLY TWICE A DAY NEEDED TAKING ASPIRIN ADULT LOW DOSE 81 MG TABLET DELAYED RELEASE 1 TAB ORALLY DAILY TAKING MOTRIN 800 MG TABLET 1 TABLET WITH FOOD OR MILK ORALLY THREE TIMES A DAY TAKING CYCLOBENZAPRINE HCL 10 MG TABLET 1 TABLET NEEDED ORALLY BID PRN NOT-TAKING FLEXERIL 5 MG TABLET 1 TABLET NEEDED ORALLY THREE TIMES A DAY NOT-TAKING NAPROXEN 500 MG TABLET 1 TABLET NEEDED ORALLY EVERY 12 HRS NOT-TAKING VOLTAREN 1 % GEL 2 GRAMS TRANSDERMAL FOUR TIMES DAILY TO RIGHT UPPER BACK AND SHOULDER NOT-TAKING ROBAXIN 500 MG TABLET 2 TABLETS ORALLY EVERY 6 HRS MAY CAUSE DROWSINESS NOT-TAKING AZITHROMYCIN 500 MG TABLET DIRECTED ORALLY ONCE A DAY MEDICATION LIST REVIEWED AND RECONCILED WITH THE PATIENT PAST MEDICAL HISTORY NONE REPORTED HYPOGLYCEMIA CHRONIC PAIN UNDER ARMS, NECK AND BACK D TO LOWER BACK PAIN SEASONAL ALLERGIES ALLERGIES PENICILLIN (FOR ALLERGIES USE ONLY): ANAPHYLAXIS VANCOMYCIN HCL MORPHINE SULFATE GABAPENTIN SOCIAL HISTORY GENERAL: TOBACCO USE ARE YOU A:CURRENT SMOKER HOW MANY CIGARETTES A DAY DO YOU SMOKE?6-10 HOW SOON AFTER YOU WAKE UP DO YOU SMOKE YOUR FIRST CIGARETTE?AFTER 60 MIN HOW OFTEN DO YOU SMOKE CIGARETTES?EVERY DAY PATIENT COUNSELED ON THE DANGERS OF TOBACCO USE AND URGED TO QUIT:12/26/2016 ARE YOU INTERESTED IN QUITTING?NOT READY TO QUIT COUNSELED THE PATIENT ON SMOKING EFFECTS, EDUCATION [id number]/26/2017 LUNG CANCER SCREENING SMOKING STATUS:CURRENT SMOKER ALCOHOL SCREENING DID YOU HAVE A DRINK CONTAINING ALCOHOL IN THE PAST YEAR?YES HOW OFTEN DID YOU HAVE A DRINK CONTAINING ALCOHOL IN THE PAST YEAR?MONTHLY OR LESS (1 POINT) HOW MANY DRINKS DID YOU HAVE ON A TYPICAL DAY WHEN YOU WERE DRINKING IN THE PAST YEAR?1 OR 2 (0 POINTS) POINTS1 INTERPRETATIONNEGATIVE HIV / HEP-C SCREENING HIV TEST OFFERED TO PATIENT:YES DATE OFFERED:06/13/2016 TEST ACCEPTED:NO REASON:PATIENT DECLINED HEP-C TEST OFFERED TO PATIENT:YES DATE OFFERED:06/13/2016 TEST ACCEPTED:NO REASON:PATIENT DECLINED AMISH [id number] NONE LANGUAGE LANGUAGES SPOKEN:MALAGASY EDUCATION LEVEL OF EDUCATION:NOT FINISHED COLLEGE LEARNING BARRIERS / SPECIAL NEEDS BARRIERS TO LEARNING?NO HEARING IMPAIRED?NO VISION IMPAIRED?YES :CORRECTIVE LENSES COGNITIVELY IMPAIRED?NO READINESS TO LEARN?YES LEARNING PREFERENCES?NO LEARNING CAPABILITIES PRESENT?YES EMOTIONAL BARRIERS?NO SPECIAL DEVICES?NO OVAL OR CIRCULAR GLASS CUTTER NEEDED?NO PAIN CLINIC PFS, CLERGY, PUBLIC HEALTH REFERRALS PFS REFERRAL NEEDED?NO CLERGY REFERRAL NEEDED?NO PUBLIC HEALTH REFERRAL NEEDED?NO HAS THE PATIENT BEEN EDUCATED REGARDING HIS/HER PLAN OF CARE?YES HAS THE PATIENT BEEN EDUCATED REGARDING PAIN, THE RISK FOR PAIN, THE IMPORTANCE OF EFFECTIVE PAIN MANAGEMENT, AND THE PAIN ASSESSMENT PROCESS?YES ADVANCE DIRECTIVES HEALTH CARE PROXY?NO WOULD YOU LIKE MORE INFORMATION?NO DO YOU HAVE A DNR?NO WOULD YOU LIKE MORE INFORMATION?NO LIVING WILL?NO WOULD YOU LIKE MORE INFORMATION?NO POWER OF LEGAL ADMINISTRATIVE SECRETARY?NO WOULD YOU LIKE MORE INFORMATION?NO REVIEW OF SYSTEMS REVIEWED BY: PROVIDER: CANDY BALDERRAMA . CONSTITUTIONAL: ANY CHANGE IN YOUR MEDICAL CONDITION? NO . CHILLS NO . FEVER NO . INFECTION: DO YOU HAVE NEW INFECTIONS? NO . DO YOU HAVE HISTORY OF MRSA? NO . MUSCULOSKELETAL: ANY NEW PATTERNS OF PAIN OR NUMBNESS? NO . GASTROENTEROLOGY: ANY NEW CHANGE IN BOWEL CONTROL? NO . GENITOURINARY: ANY NEW CHANGE IN BLADDER CONTROL? NO . IS THERE A CHANCE YOU COULD BE ? NO . HEMATOLOGY/LYMPH: DO YOU TAKE ANY BLOOD THINNERS? (FOR EXAMPLE- COUMADIN, PLAVIX, AGGRENOX, PLATEL, PRADAXA, OR XARELTO) NO . WHEN WAS YOUR LAST DOSE? DATE: TIME: . NEUROLOGY: HAVE YOU FALLEN IN THE PAST 6 MONTHS? NO . ANY NEW EXTREMITY NUMBNESS OR WEAKNESS? NO . CARDIOLOGY: DO YOU HAVE A PACEMAKER OR DEFIBRILLATOR? NO . RESPIRATORY: HAVE YOU BEEN SICK IN THE PAST WEEK? NO . FEVER NO . FLU LIKE SYMPTOMS? NO . COUGH NO . INTEGUMENTARY: DO YOU HAVE ANY RASHES OR OPEN SORES? NO . ALLERGIC/IMMUNO: ARE YOU ALLERGIC TO SHELLFISH OR IV DYE? NO . ANY NEW ALLERGIES? NO . PSYCHIATRIC: DO YOU HAVE THOUGHTS OF HURTING YOURSELF OR SOMEONE ELSE? NO . ARE YOU ABUSED, NEGLECTED, OR IN AN UNSAFE ENVIRONMENT? NO . ENDOCRINOLOGY: ARE YOU DIABETIC? NO . OTHER: DO YOU NEED ANY PRESCRIPTIONS? YES . IF YES, PLEASE LIST: FLEXERIL . ANY NEW PROBLEMS WITH YOUR MEDICATIONS? NO . WHEN DID YOU LAST EAT? ____ . WHEN DID YOU LAST DRINK? ____ . WHAT DID YOU LAST DRINK? ____ . NAME OF PERSON DRIVING YOU HOME? ____ . DO YOU HAVE ANY OTHER QUESTIONS OR CONCERNS NO . VITAL SIGNS WT 145 LBS, HT 5'7", BMI 22.71 INDEX, BP 136/77 MM HG, HR 80 /MIN, RR 18 /MIN, TEMP 97.8 F, OXYGEN SAT % 100%, REVIEWED BY: MILLI (DONE AT 1313). EXAMINATION GENERAL EXAMINATION: GENERAL APPEARANCE:UNCOMFORTABLE.. PSYCHAFFECT NORMAL. NECK:TRACHEA MIDLINE. NO CERVICAL OR SUPRACLAVICULAR LYMPHADENOPATHY NOTED. LUNGS:LUNG GRIJALVA ARE CLEAR TO AUSCULTATION BILATERALLY. GOOD MOVEMENT OF AIR. HEART:S1, S2 IN A REGULAR RATE AND RHYTHM. NO SIGNIFICANT MURMURS, RUBS OR GALLOPS NOTED. ABDOMEN:SOFT, NON-TENDER, NO ORGANOMEGALY, BOWEL SOUNDS ARE NORMAL. LUMBAR SPINE/LOWER BACK: INSPECTION:NORMAL CURVATURE OF SPINEWELL HEALED, SCAR FROM PREVIOUS SURGERY. PALPATION:VERTEBRAL SPINE TENDERNESS, SI JOINT TENDERNESS, PARASPINAL TENDERNESS. STRAIGHT LEG RAISING TEST:POSITIVE AT 45 DEGREES ON, THE RIGHT, POSITIVE AT 45 DEGREES ON, THE LEFT. MOTOR SYSTEM:5/5 BLE. SENSORY EXAM:NORMAL BILATERAL LE. REFLEXES:2/4 AND SYMMETRIC BLE. GAIT:WALKING WITH NOTICEABLE LIMP. ASSESSMENTS LUMBAGO OF LUMBOSACARAL REGION WITH SCIATICA - M54.40 (PRIMARY) LUMBOSACRAL RADICULOPATHY - M54.17 TREATMENT LUMBAGO OF LUMBOSACARAL REGION WITH SCIATICA NOTES: CAUDAL VS L4/5 INTRALAMINAR LESI,WHAT IS LUMBAR EPIDURAL INJECTION? MATERIAL WAS PRINTED,LUMBAR EPIDURAL INJECTION: YOUR PROCEDURE MATERIAL WAS PRINTED,LUMBAR EPIDURAL INJECTION: RECOVERY AT HOME MATERIAL WAS PRINTED. PREVENTIVE MEDICINE PAIN CLINIC TEACHING: PROCEDURE TEACHING PRE-PROCEDURE TEACHING DONE. QUESTIONS ANSWERED AND PATIENT VERBALIZES UNDERSTANDING. ADDITIONAL LUMBAR EPIDURAL STEROID INJECTION INFORMATION GIVEN.. PROCEDURE CODES FA211 ESTABILISHED PATIENT [facility] FAC[facility] CHARGE DISPOSITION & COMMUNICATION FOLLOW UP 2WK POST (REASON: CAUDAL VS L4/5 INTRALAMINAR LESI) ELECTRONICALLY SIGNED BY TACOS CARNEY ON 02/06/2017 AT 05:28 PM EDT DISCLAIMER : THIS IS A VISIT SUMMARY EXTRACTED FROM THE [employer] CHART. IT IS NOT A COPY OF THE [employer] PROGRESS NOTE. MTDD
== END ==
LOC: M PAIN 13:00
PROVIDERS: ATTEND Nurse Practitioner Family
DX: M54.40 Lumbago with sciatica, unspecified side (principal); M54.17 Radiculopathy, lumbosacral region; G89.29 Other chronic pain; Z79.82 Long term (current) use of aspirin; Z79.1 Long term (current) use of non-steroidal anti-inflammatories (NSAID); Z79.899 Other long term (current) drug therapy; J30.2 Other seasonal allergic rhinitis; E16.2 Hypoglycemia, unspecified; F17.210 Nicotine dependence, cigarettes, uncomplicated; Z88.0 Allergy status to penicillin; Z88.1 Allergy status to other antibiotic agents; Z88.5 Allergy status to narcotic agent; Z88.8 Allergy status to other drugs, medicaments and biological substances

== ENCOUNTER 2017-02-11 09:22 | Emergency (ER) | payer OTHER ==
[~2017-02-11] VITALS: Ht 170.2 cm; Wt 65.9 kg
[2017-02-11] MEDS ORDERED: ASPI81TA85 PO (09:38)
[2017-02-11] MEDS ORDERED: NS 1,000 ML IV SCH (09:50)
[2017-02-11] MEDS ORDERED: ASPIRIN 81 MG CHEW TABLET PO ONE (10:00)
[2017-02-11] MEDS ORDERED: KETOROLAC 30 MG/ML VIAL (J1885) IV ONE (10:00)
--- NOTE | 2017-02-11 10:19 | REP ---
Clinical: Chest pain . Comparison: 07/01/2016 . Findings: The mediastinum and cardiac silhouette are stable and within normal limits for portable technique. The lung mcgarry are clear without acute consolidation, effusion, or pneumothorax. Skeletal structures are intact. Impression: No acute cardiopulmonary process appreciated. Signed by Nic Muñoz MD 02/11/2017 10:10 A
[2017-02-11 11:13] LABS: BASO # 0.1 K/mm3 (0.0-0.2); EOS # 0.6 K/mm3 (0.0-0.50); EOS % 7.8 % (0.0-3.0); LARGE UNSTAINED CELL # 0.1 K/mm3 (0.0-0.4); LARGE UNSTAINED CELL % 1.8 % (0.0-4.0); LYMPH # 1.9 K/mm3 (1.5-4.5); LYMPH % 27.2 % (24.0-44.0); MEAN CORPUSCULAR HEMOGLOBIN 31.8 pg (27.0-33.0); MEAN CORPUSCULAR HGB CONC 34.2 g/dl (32.0-36.5); MEAN CORPUSCULAR VOLUME 92.8 fl (80.0-96.0); MONO # 0.5 K/mm3 (0.0-0.8); NEUTROPHILS # 3.9 K/mm3 (1.8-7.7); NEUTROPHILS % 55.3 % (36.0-66.0); PLATELET COUNT, AUTOMATED 261 k/mm3 (150-450); RED CELL DISTRIBUTION WIDTH 12.1 % (11.5-14.5); WHITE BLOOD COUNT 7.1 K/mm3 (4.0-10.0)
[2017-02-11 11:20] LABS: INR 0.9
[2017-02-11 11:39] LABS: ALBUMIN 3.7 GM/DL (3.2-5.2); ALBUMIN/GLOBULIN RATIO 1.06 (1.00-1.93); ALKALINE PHOSPHATASE 104 U/L (45-117); ALT/SGPT 27 U/L (12-78); ANION GAP 7 MEQ/L (8-16); AST/SGOT 21 U/L (15-37); BILIRUBIN,DIRECT < 0.1 MG/DL (0.0-0.2); BILIRUBIN,TOTAL 0.3 MG/DL (0.2-1.0); BLOOD UREA NITROGEN 8 MG/DL (7-18); CALCIUM LEVEL 8.9 MG/DL (8.5-10.1); CARBON DIOXIDE LEVEL 27 MEQ/L (21-32); CHLORIDE LEVEL 106 MEQ/L (98-107); CREATININE FOR GFR 0.66 MG/DL (0.55-1.02); GLOMERULAR FILTRATION RATE > 60.0 (>58); GLUCOSE, FASTING 86 MG/DL (70-105); SODIUM LEVEL 140 MEQ/L (136-145); TOTAL PROTEIN 7.2 GM/DL (6.4-8.2)
[2017-02-11] MEDS ORDERED: PERCOCET 5MG/325MG TAB PO ONE (12:30)
[2017-02-11] MEDS ORDERED: ISOVUE-370 76% 100ML VIAL (Q9967) As Ordered ONE (12:54)
--- NOTE | 2017-02-11 13:23 | REP ---
Clinical: Acute chest pain . Technique: Axial contrast enhanced images from the thoracic inlet to the upper abdomen using 100 ml Isovue 370 intravenous contrast material with multiplanar re-formations. Findings: Satisfactory enhancement of the pulmonary vasculature is achieved and no filling defects are identified to suggest pulmonary embolus. Further evaluation of the mediastinum demonstrates normal thoracic aorta, heart and pericardium. The bilateral lung mcgarry are well aerated and clear without consolidation pleural effusion or pneumothorax. Tracheobronchial tree is patent. No nodule or mass lesion is identified. No adenopathy noted. Surrounding musculoskeletal structures intact Impression: No evidence for pulmonary embolus. No acute mediastinal or pleural parenchymal process. Signed by Nic Muñoz MD 02/11/2017 01:15 P
[2017-02-11 13:59] VITALS: BP 132/83
[2017-02-11] MEDS ORDERED: PERC5TAB12 PO (14:07)
[2017-02-11] MEDS ORDERED: NAPR500T PO (14:08)
--- NOTE | 2017-02-11 19:32 | ECGEPIP ---
Stationary ECG Study [facility] - ED Test Date: 2017-02-11 Pat Name: LIANNA RODRIGUES Department: Room: - Gender: F Die Filer: virgen : 1975 Requested By: Laura Barraza Order Number: [id number] Reading MD: Guilherme Adames Measurements Intervals [place] Rate: 97 P: 79 FL: 129 QRS: 0 QRSD: 88 T: 63 QT: 342 QTc: 436 Interpretive Statements SINUS RHYTHM WITH SINUS ARRHYTHMIA POSSIBLE LAE Electronically Signed On 02-11-2017 19:32:19 EDT by Guilherme Adames
== END 2017-02-11 14:18 | disposition home or self-care (01) ==
LOC: M ED 09:22
DX: R07.89 Other chest pain (principal); E78.5 Hyperlipidemia, unspecified; F17.210 Nicotine dependence, cigarettes, uncomplicated; Z79.899 Other long term (current) drug therapy; Z88.0 Allergy status to penicillin; Z88.5 Allergy status to narcotic agent; Z88.8 Allergy status to other drugs, medicaments and biological substances; Z88.1 Allergy status to other antibiotic agents; Z82.49 Family history of ischemic heart disease and other diseases of the circulatory system; Z98.890 Other specified postprocedural states
CPT/HCPCS: 71010; 71275; 80048; 80076; 82550; 82553; 83690; 83880; 84443; 85025; 85610; 93005; 93041; 94760; 96374; 99285; J1885; Q9967

== ENCOUNTER → 2017-02-14 | Outpatient (CLI) | payer OTHER ==
[~2017-02-14] MED LIST changes: +ISOVUE-M 300 61% 15ML VIAL (Q9967) As Ordered ONE; +LIDOCAINE 1% SDV INJ 30 ML VIAL As Ordered ONE; +ONDANSETRON 4MG/2ML VIAL (J2405) As Ordered ONE; +diazePAM 5 MG TAB As Ordered ONE; +methylPREDNISolone SUSP 40 MG/ML (DEPO-medrol) VIAL (J1030) As Ordered ONE; +oxyCODONE 5MG TAB As Ordered ONE
--- NOTE | 2017-02-14 11:48 | REP ---
Partial lumbar spine series: For three views. . History: Injection procedure for pain. 13 seconds of fluoroscopy time is reported. Findings: A sequence of three fluoroscopically obtained last image hold procedural spot radiographs of the lumbar spine document needle position and contrast injection associated with injection procedure. Signed by Reyes Butt MD 02/14/2017 11:41 A
--- NOTE | 2017-02-14 23:46 | ECWPNPC ---
PATIENT NAME: LIANNA RODRIGUES : 1975 GENDER: FEMALE VISIT DATE: 02/14/2017 DISCHARGE DATE: 02/14/17 1158 VISIT LOCKED DATE TIME: PHYSICIAN: ROSIE OROZCO RESOURCE: ROSIE OROZCO REASON FOR APPOINTMENT 1. CAUDAL VS L4/5 INTRALAMINAR LESI HISTORY OF PRESENT ILLNESS HISTORY OF PRESENT ILLNESS: PAIN THE PATIENT DESCRIBES THE PAIN... FALL RISK SCREENING: SCREENING :NO FALLS IN THE PAST YEAR CURRENT MEDICATIONS TAKING TYLENOL 500 MG- 2 TABLETS ORALLY TWICE A DAY NEEDED, NOTES: NOT LATELY TAKING ASPIRIN ADULT LOW DOSE 81 MG TABLET DELAYED RELEASE 1 TAB ORALLY DAILY, NOTES: 09 TAKING MOTRIN 800 MG TABLET 1 TABLET WITH FOOD OR MILK ORALLY THREE TIMES A DAY, NOTES: 02-13-17 TAKING CYCLOBENZAPRINE HCL 10 MG TABLET 1 TABLET NEEDED ORALLY BID PRN, NOTES: 02-13-17 1900 TAKING PERCOCET 5-325 MG TABLET 1 TABLET NEEDED ORALLY EVERY 6 HRS, NOTES: 02-12-17 09 NOT-TAKING FLEXERIL 5 MG TABLET 1 TABLET NEEDED ORALLY THREE TIMES A DAY NOT-TAKING NAPROXEN 500 MG TABLET 1 TABLET NEEDED ORALLY EVERY 12 HRS NOT-TAKING VOLTAREN 1 % GEL 2 GRAMS TRANSDERMAL FOUR TIMES DAILY TO RIGHT UPPER BACK AND SHOULDER NOT-TAKING ROBAXIN 500 MG TABLET 2 TABLETS ORALLY EVERY 6 HRS MAY CAUSE DROWSINESS NOT-TAKING AZITHROMYCIN 500 MG TABLET DIRECTED ORALLY ONCE A DAY MEDICATION LIST REVIEWED AND RECONCILED WITH THE PATIENT PAST MEDICAL HISTORY NONE REPORTED HYPOGLYCEMIA CHRONIC PAIN UNDER ARMS, NECK AND BACK D TO LOWER BACK PAIN SEASONAL ALLERGIES ALLERGIES PENICILLIN (FOR ALLERGIES USE ONLY): ANAPHYLAXIS VANCOMYCIN HCL MORPHINE SULFATE GABAPENTIN SURGICAL HISTORY CHOLECYSTECTOMY 2010 ABD LAPAROSCOPIC DX 2013 BREAST AUGMENTATION BILAT 2013 DEVIATED SEPTUM REPAIR 2015 BACK SURGERY MICRODISCOTEMY, L1-L2 09/2015 C5-C6 FUSION 2015 HYSTERECTOMY SOCIAL HISTORY GENERAL: TOBACCO USE ARE YOU A:CURRENT SMOKER HOW OFTEN DO YOU SMOKE CIGARETTES?EVERY DAY HOW SOON AFTER YOU WAKE UP DO YOU SMOKE YOUR FIRST CIGARETTE?AFTER 60 MIN HOW MANY CIGARETTES A DAY DO YOU SMOKE?6-10 ARE YOU INTERESTED IN QUITTING?NOT READY TO QUIT PATIENT COUNSELED ON THE DANGERS OF TOBACCO USE AND URGED TO QUIT:12/26/2016 COUNSELED THE PATIENT ON SMOKING EFFECTS, EDUCATION SPRZAUSH88/26/2017 LUNG CANCER SCREENING SMOKING STATUS:CURRENT SMOKER ALCOHOL SCREENING DID YOU HAVE A DRINK CONTAINING ALCOHOL IN THE PAST YEAR?YES HOW MANY DRINKS DID YOU HAVE ON A TYPICAL DAY WHEN YOU WERE DRINKING IN THE PAST YEAR?1 OR 2 (0 POINTS) HOW OFTEN DID YOU HAVE A DRINK CONTAINING ALCOHOL IN THE PAST YEAR?MONTHLY OR LESS (1 POINT) POINTS1 INTERPRETATIONNEGATIVE HIV / HEP-C SCREENING HIV TEST OFFERED TO PATIENT:YES DATE OFFERED:06/13/2016 TEST ACCEPTED:NO HEP-C TEST OFFERED TO PATIENT:YES DATE OFFERED:06/13/2016 REASON:PATIENT DECLINED TEST ACCEPTED:NO REASON:PATIENT DECLINED CHRISTIANITY [id number] NONE LANGUAGE LANGUAGES SPOKEN:PORTUGUESE EDUCATION LEVEL OF EDUCATION:NOT FINISHED COLLEGE LEARNING BARRIERS / SPECIAL NEEDS BARRIERS TO LEARNING?NO HEARING IMPAIRED?NO VISION IMPAIRED?YES COGNITIVELY IMPAIRED?NO :CORRECTIVE LENSES READINESS TO LEARN?YES LEARNING PREFERENCES?NO LEARNING CAPABILITIES PRESENT?YES EMOTIONAL BARRIERS?NO SPECIAL DEVICES?NO SENIOR SUSTAINABILITY ADVISOR NEEDED?NO PAIN CLINIC PFS, CLERGY, PUBLIC HEALTH REFERRALS PFS REFERRAL NEEDED?NO CLERGY REFERRAL NEEDED?NO PUBLIC HEALTH REFERRAL NEEDED?NO HAS THE PATIENT BEEN EDUCATED REGARDING HIS/HER PLAN OF CARE?YES HAS THE PATIENT BEEN EDUCATED REGARDING PAIN, THE RISK FOR PAIN, THE IMPORTANCE OF EFFECTIVE PAIN MANAGEMENT, AND THE PAIN ASSESSMENT PROCESS?YES ADVANCE DIRECTIVES HEALTH CARE PROXY?NO WOULD YOU LIKE MORE INFORMATION?NO POWER OF WHOLESALE AND RETAIL MERCHANT?NO DO YOU HAVE A DNR?NO WOULD YOU LIKE MORE INFORMATION?NO LIVING WILL?NO WOULD YOU LIKE MORE INFORMATION?NO WOULD YOU LIKE MORE INFORMATION?NO HOSPITALIZATION/MAJOR DIAGNOSTIC PROCEDURE SURGERY RELATED REVIEW OF SYSTEMS REVIEWED BY: PROVIDER: . CONSTITUTIONAL: ANY CHANGE IN YOUR MEDICAL CONDITION? NO . CHILLS NO . FEVER NO . INFECTION: DO YOU HAVE NEW INFECTIONS? NO . DO YOU HAVE HISTORY OF MRSA? NO . MUSCULOSKELETAL: ANY NEW PATTERNS OF PAIN OR NUMBNESS? NO . GASTROENTEROLOGY: ANY NEW CHANGE IN BOWEL CONTROL? NO . GENITOURINARY: ANY NEW CHANGE IN BLADDER CONTROL? NO . IS THERE A CHANCE YOU COULD BE ? NO . HEMATOLOGY/LYMPH: DO YOU TAKE ANY BLOOD THINNERS? (FOR EXAMPLE- COUMADIN, PLAVIX, AGGRENOX, PLATEL, PRADAXA, OR XARELTO) NO . WHEN WAS YOUR LAST DOSE? DATE: TIME: . NEUROLOGY: HAVE YOU FALLEN IN THE PAST 6 MONTHS? NO . ANY NEW EXTREMITY NUMBNESS OR WEAKNESS? NO . CARDIOLOGY: DO YOU HAVE A PACEMAKER OR DEFIBRILLATOR? NO . RESPIRATORY: HAVE YOU BEEN SICK IN THE PAST WEEK? NO . FEVER NO . FLU LIKE SYMPTOMS? NO . COUGH NO . INTEGUMENTARY: DO YOU HAVE ANY RASHES OR OPEN SORES? NO . ALLERGIC/IMMUNO: ARE YOU ALLERGIC TO SHELLFISH OR IV DYE? NO . ANY NEW ALLERGIES? NO . PSYCHIATRIC: DO YOU HAVE THOUGHTS OF HURTING YOURSELF OR SOMEONE ELSE? NO . ARE YOU ABUSED, NEGLECTED, OR IN AN UNSAFE ENVIRONMENT? NO . ENDOCRINOLOGY: ARE YOU DIABETIC? NO . OTHER: DO YOU NEED ANY PRESCRIPTIONS? NO . IF YES, PLEASE LIST: ____ . ANY NEW PROBLEMS WITH YOUR MEDICATIONS? NO . WHEN DID YOU LAST EAT? 1899 . WHEN DID YOU LAST DRINK? 129 . WHAT DID YOU LAST DRINK? POWERADE . NAME OF PERSON DRIVING YOU HOME? QUINTON RODRIGUES . DO YOU HAVE ANY OTHER QUESTIONS OR CONCERNS NO . VITAL SIGNS WT 145 LBS, HT 5'7", BMI 22.71 INDEX, BP 108/68 MM HG, HR 85 /MIN, RR 18 /MIN, TEMP 98.1 F, OXYGEN SAT % 100%, NA INITIALS SC 09:22, REVIEWED BY: ELIOT. ASSESSMENTS INTERVERTEBRAL DISC DISORDER WITH RADICULOPATHY OF LUMBOSACRAL REGION - M51.17 (PRIMARY) PROCEDURES PRE PROCEDURE DIAGNOSIS LUMBOSACRAL DISC DISORDER WITH RADICULOPATHY POST PROCEDURE DIAGNOSIS LUMBOSACRAL DISC DISORDER WITH RADICULOPATHY PROCEDURE LUMBAR EPIDURAL STEROID INJECTION UNDER FLUOROSCOPIC GUIDANCE SURGEON DR. ROSIE OROZCO KIDNEY PULLER NONE ANESTHESIA LOCAL PRE PROCEDURE NOTE THE PATIENT HAS A HISTORY OF CHRONIC LOW BACK PAIN. I EVALUATE THE PATIENT AND REVIEWED THE CHART. I WENT OVER THE RISKS, ALTERNATIVES, AND BENEFITS ASSOCIATED WITH THIS PROCEDURE. THE PATIENT WOULD LIKE TO PROCEED AND GIVE CONSENT TO PERFORMED THE PROCEDURE. THE PATIENT DENIES UNEXPLAINABLE WEIGHT LOSS, FEVER, CHILLS, OR NEW CHANGES IN URINARY OR BOWEL CONTROL. DESCRIPTION OF PROCEDURE THE PATIENT WAS BROUGHT TO THE PROCEDURE ROOM AND PLACED IN THE PRONE POSITION. THE LUMBOSACRAL AREA WAS CLEANED WITH BETADINE SOLUTION AND DRAPED ASEPTICALLY. THE PROCEDURE WAS DONE UNDER STERILE CONDITIONS. I CHECKED LATERALITY AND THE LEVEL WHERE THE PROCEDURE WAS GOING TO BE PERFORMED WITH THE PATIENT AND THE SUPPORTING STAFF AT THE MOMENT OF THE TIME OUT IN THE PROCEDURE ROOM. UNDER FLUOROSCOPIC GUIDANCE, THE TARGET POINT WAS SELECTED AT THE INTERLAMINAR LEVEL OF L5-S1. LIDOCAINE WAS USED TO NUMB THE SKIN AND THE SUBCUTANEOUS TISSUE BELOW IT. EPIDURAL TUOHY NEEDLE, 17-GAUGE, WAS ADVANCED UNDER FLUOROSCOPIC GUIDANCE AND FOLLOWING PATIENT FEEDBACK UNTIL THE EPIDURAL SPACE WAS REACHED, 7 CM DEEP INTO THE SKIN BY THE LOSS OF RESISTANCE TECHNIQUE. ISOVUE M DYE 30%, 0.25 ML, WAS INJECTED SHOWING ADEQUATE SPREAD OF THE DYE. THEN, A SOLUTION OF 3 ML OF NORMAL SALINE WITH DEPO-MEDROL 60 MG WAS INJECTED SLOWLY FOLLOWING PATIENT FEEDBACK. THERE WAS NO EVIDENCE OF BLOOD, PARESTHESIA OR CEREBROSPINAL FLUID DURING THE PROCEDURE. THE PATIENT WAS SENT TO THE RECOVERY ROOM. THE PATIENT WAS MOVING THE EXTREMITIES AND DOING WELL. THERE WAS NO COMPLICATION DURING THE PROCEDURE. FLUOROSCOPY TIME WAS 13 SECONDS. POST PROCEDURE NOTE THE PATIENT WILL BE SEEN IN A FOLLOW UP IN THE NEXT FEW WEEKS. INSTRUCTIONS WERE GIVEN, QUESTIONS WERE ANSWERED, AND THE PATIENT EXPRESSED UNDERSTANDING AND AGREES WITH THE PLAN. I, HA ABEL, DOCUMENTED THE ABOVE INFORMATION ACTING A SCRIBE FOR DR. OROZCO. I HAVE REVIEWED THE ABOVE DOCUMENT, WRITTEN BY HA ABEL SCRIBE AND I VERIFY THAT IT IS ACCURATE DIAGNOSTIC IMAGING [facility] FLUORO GUIDE SPINE INJECTION (PAIN)[id number] PROCEDURE CODES 39497 LUMBAR/SACRAL W/ IMAGING 6045F RADXPS IN END [id number] PXD DISPOSITION & COMMUNICATION FOLLOW UP 3 WEEKS ELECTRONICALLY SIGNED BY ROSIE OROZCO MD ON 02/14/2017 AT 01:19 PM EDT DISCLAIMER : THIS IS A VISIT SUMMARY EXTRACTED FROM THE [employer] CHART. IT IS NOT A COPY OF THE [employer] PROGRESS NOTE. MTDD
== END ==
LOC: M PAIN 08:45
PROVIDERS: ATTEND Anesthesiology
DX: G89.29 Other chronic pain (principal); M51.17 Intervertebral disc disorders with radiculopathy, lumbosacral region; J30.2 Other seasonal allergic rhinitis; F17.210 Nicotine dependence, cigarettes, uncomplicated; Z88.0 Allergy status to penicillin; Z88.5 Allergy status to narcotic agent; Z88.8 Allergy status to other drugs, medicaments and biological substances; Z79.82 Long term (current) use of aspirin; Z79.1 Long term (current) use of non-steroidal anti-inflammatories (NSAID); Z79.899 Other long term (current) drug therapy
CPT/HCPCS: 62323; J1030; J2405; Q9967

== ENCOUNTER → 2017-03-20 | Outpatient (CLI) | payer OTHER ==
[~2017-03-20] MED LIST changes: -ISOVUE-M 300 61% 15ML VIAL (Q9967) As Ordered ONE; -LIDOCAINE 1% SDV INJ 30 ML VIAL As Ordered ONE; -ONDANSETRON 4MG/2ML VIAL (J2405) As Ordered ONE; -diazePAM 5 MG TAB As Ordered ONE; -methylPREDNISolone SUSP 40 MG/ML (DEPO-medrol) VIAL (J1030) As Ordered ONE; -oxyCODONE 5MG TAB As Ordered ONE
--- NOTE | 2017-03-20 23:29 | ECWPNPC ---
PATIENT NAME: LIANNA RODRIGUES : 1975 GENDER: FEMALE VISIT DATE: 03/20/2017 DISCHARGE DATE: 03/20/17 0000 VISIT LOCKED DATE TIME: PHYSICIAN: CANDY CAMPOVERDE RESOURCE: CANDY CAMPOVERDE REASON FOR APPOINTMENT 1. POST PROC HISTORY OF PRESENT ILLNESS HISTORY OF PRESENT ILLNESS: HERE FOR POST PROCEDURE F/U.HAD LESI ON 02-14-17.REPORTING ONE DAY OF IMPROVEMENT POST PROCEDURE.HAS TRIALED MULTIPLE MEDICATIONS OVER THE YEARS TO INCLUDE LYRICA AND CYMBALTA WITHOUT IMPROVEMENT.ALLERGIC TO GABAPENTIN.TRIALED PT,CHIROPRACTIC AND ACCUPUNCTURE TRIALS DIDNT HELP.DISCUSSED TREATMENT OPTIONS TO INCLUDE LUMBAR THERAPEUTIC AND DIAGNOSTIC BLOCKS.SHE WOULD LIKE TO WAIT UNTIL GETS HOME IN NOVEMBER.COMPLAINS OF GENERALIZED BACK PAIN WITH LOW BACK BEING WORSE AREA.RATING PAIN VAS 5/10. PAIN THE PATIENT DESCRIBES THE PAIN... FALL RISK SCREENING: SCREENING :NO FALLS IN THE PAST YEAR CURRENT MEDICATIONS TAKING TYLENOL 500 MG- 2 TABLETS ORALLY TWICE A DAY NEEDED TAKING ASPIRIN ADULT LOW DOSE 81 MG TABLET DELAYED RELEASE 1 TAB ORALLY DAILY TAKING MOTRIN 800 MG TABLET 1 TABLET WITH FOOD OR MILK ORALLY THREE TIMES A DAY TAKING CYCLOBENZAPRINE HCL 10 MG TABLET 1 TABLET NEEDED ORALLY BID PRN NOT-TAKING PERCOCET 5-325 MG TABLET 1 TABLET NEEDED ORALLY EVERY 6 HRS NOT-TAKING FLEXERIL 5 MG TABLET 1 TABLET NEEDED ORALLY THREE TIMES A DAY NOT-TAKING NAPROXEN 500 MG TABLET 1 TABLET NEEDED ORALLY EVERY 12 HRS NOT-TAKING VOLTAREN 1 % GEL 2 GRAMS TRANSDERMAL FOUR TIMES DAILY TO RIGHT UPPER BACK AND SHOULDER NOT-TAKING ROBAXIN 500 MG TABLET 2 TABLETS ORALLY EVERY 6 HRS MAY CAUSE DROWSINESS NOT-TAKING AZITHROMYCIN 500 MG TABLET DIRECTED ORALLY ONCE A DAY MEDICATION LIST REVIEWED AND RECONCILED WITH THE PATIENT PAST MEDICAL HISTORY NONE REPORTED HYPOGLYCEMIA CHRONIC PAIN UNDER ARMS, NECK AND BACK D TO LOWER BACK PAIN SEASONAL ALLERGIES ALLERGIES PENICILLIN (FOR ALLERGIES USE ONLY): ANAPHYLAXIS VANCOMYCIN HCL MORPHINE SULFATE GABAPENTIN SOCIAL HISTORY GENERAL: TOBACCO USE ARE YOU A:FORMER SMOKER HOW LONG HAS IT BEEN SINCE YOU LAST SMOKED?< 1 MONTH LUNG CANCER SCREENING SMOKING STATUS:FORMER SMOKER ALCOHOL SCREENING DID YOU HAVE A DRINK CONTAINING ALCOHOL IN THE PAST YEAR?YES HOW MANY DRINKS DID YOU HAVE ON A TYPICAL DAY WHEN YOU WERE DRINKING IN THE PAST YEAR?1 OR 2 (0 POINTS) HOW OFTEN DID YOU HAVE A DRINK CONTAINING ALCOHOL IN THE PAST YEAR?MONTHLY OR LESS (1 POINT) POINTS1 INTERPRETATIONNEGATIVE HIV / HEP-C SCREENING HIV TEST OFFERED TO PATIENT:YES DATE OFFERED:06/13/2016 TEST ACCEPTED:NO HEP-C TEST OFFERED TO PATIENT:YES DATE OFFERED:06/13/2016 REASON:PATIENT DECLINED TEST ACCEPTED:NO REASON:PATIENT DECLINED ISLAM [id number] NONE LANGUAGE LANGUAGES SPOKEN:VIETNAMESE EDUCATION LEVEL OF EDUCATION:NOT FINISHED COLLEGE LEARNING BARRIERS / SPECIAL NEEDS CHANGE FROM LAST VISIT?NO BARRIERS TO LEARNING?NO HEARING IMPAIRED?NO VISION IMPAIRED?YES :CORRECTIVE LENSES COGNITIVELY IMPAIRED?NO READINESS TO LEARN?YES LEARNING PREFERENCES?NO LEARNING CAPABILITIES PRESENT?YES EMOTIONAL BARRIERS?NO SPECIAL DEVICES?NO OCEANOGRAPHER ASSISTANT NEEDED?NO PAIN CLINIC PFS, CLERGY, PUBLIC HEALTH REFERRALS PFS REFERRAL NEEDED?NO CLERGY REFERRAL NEEDED?NO PUBLIC HEALTH REFERRAL NEEDED?NO HAS THE PATIENT BEEN EDUCATED REGARDING HIS/HER PLAN OF CARE?YES HAS THE PATIENT BEEN EDUCATED REGARDING PAIN, THE RISK FOR PAIN, THE IMPORTANCE OF EFFECTIVE PAIN MANAGEMENT, AND THE PAIN ASSESSMENT PROCESS?YES ADVANCE DIRECTIVES HEALTH CARE PROXY?NO WOULD YOU LIKE MORE INFORMATION?NO POWER OF LEGISLATIVE CORRESPONDENT?NO DO YOU HAVE A DNR?NO WOULD YOU LIKE MORE INFORMATION?NO LIVING WILL?NO WOULD YOU LIKE MORE INFORMATION?NO WOULD YOU LIKE MORE INFORMATION?NO REVIEW OF SYSTEMS REVIEWED BY: PROVIDER: CANDY BALDERRAMA . CONSTITUTIONAL: ANY CHANGE IN YOUR MEDICAL CONDITION? NO . CHILLS NO . FEVER NO . INFECTION: DO YOU HAVE NEW INFECTIONS? NO . DO YOU HAVE HISTORY OF MRSA? NO . MUSCULOSKELETAL: ANY NEW PATTERNS OF PAIN OR NUMBNESS? NO . GASTROENTEROLOGY: ANY NEW CHANGE IN BOWEL CONTROL? NO . GENITOURINARY: ANY NEW CHANGE IN BLADDER CONTROL? NO . IS THERE A CHANCE YOU COULD BE ? NO . HEMATOLOGY/LYMPH: DO YOU TAKE ANY BLOOD THINNERS? (FOR EXAMPLE- COUMADIN, PLAVIX, AGGRENOX, PLATEL, PRADAXA, OR XARELTO) NO . WHEN WAS YOUR LAST DOSE? DATE: TIME: . NEUROLOGY: HAVE YOU FALLEN IN THE PAST 6 MONTHS? NO . ANY NEW EXTREMITY NUMBNESS OR WEAKNESS? NO . CARDIOLOGY: DO YOU HAVE A PACEMAKER OR DEFIBRILLATOR? NO . RESPIRATORY: HAVE YOU BEEN SICK IN THE PAST WEEK? NO . FEVER NO . FLU LIKE SYMPTOMS? NO . COUGH NO . INTEGUMENTARY: DO YOU HAVE ANY RASHES OR OPEN SORES? NO . ALLERGIC/IMMUNO: ARE YOU ALLERGIC TO SHELLFISH OR IV DYE? NO . ANY NEW ALLERGIES? NO . PSYCHIATRIC: DO YOU HAVE THOUGHTS OF HURTING YOURSELF OR SOMEONE ELSE? NO . ARE YOU ABUSED, NEGLECTED, OR IN AN UNSAFE ENVIRONMENT? NO . ENDOCRINOLOGY: ARE YOU DIABETIC? NO . OTHER: DO YOU NEED ANY PRESCRIPTIONS? NO . IF YES, PLEASE LIST: ____ . ANY NEW PROBLEMS WITH YOUR MEDICATIONS? NO . WHEN DID YOU LAST EAT? ____ . WHEN DID YOU LAST DRINK? ____ . WHAT DID YOU LAST DRINK? ____ . NAME OF PERSON DRIVING YOU HOME? ____ . DO YOU HAVE ANY OTHER QUESTIONS OR CONCERNS NO . VITAL SIGNS WT 150 LBS, HT 5'7", BMI 23.49 INDEX, BP 119/85 MM HG, HR 94 /MIN, RR 18 /MIN, TEMP 98.0 F, OXYGEN SAT % 97%, SAFE IN ENV? (Y/N) YES, NA INITIALS AW 1006, REVIEWED BY: MILLI. EXAMINATION GENERAL EXAMINATION: GENERAL APPEARANCE:UNCOMFORTABLE.. PSYCHAFFECT NORMAL. NECK:TRACHEA MIDLINE. NO CERVICAL OR SUPRACLAVICULAR LYMPHADENOPATHY NOTED. LUNGS:LUNG GRIJALVA ARE CLEAR TO AUSCULTATION BILATERALLY. GOOD MOVEMENT OF AIR. HEART:S1, S2 IN A REGULAR RATE AND RHYTHM. NO SIGNIFICANT MURMURS, RUBS OR GALLOPS NOTED. ABDOMEN:SOFT, NON-TENDER, NO ORGANOMEGALY, BOWEL SOUNDS ARE NORMAL. ASSESSMENTS LUMBAGO OF LUMBOSACARAL REGION WITH SCIATICA - M54.40 (PRIMARY) TREATMENT [place] OF LUMBOSACARAL REGION WITH SCIATICA NOTES: CONSIDER DIAGNOSTIC OR THERAPEUTIC BLOCK. PROCEDURE CODES FA211 ESTABILISHED PATIENT [facility] CHARGE DISPOSITION & COMMUNICATION FOLLOW UP PT WILL CALL ELECTRONICALLY SIGNED BY TACOS CARNEY ON 03/20/2017 AT 02:55 PM EDT DISCLAIMER : THIS IS A VISIT SUMMARY EXTRACTED FROM THE [employer] CHART. IT IS NOT A COPY OF THE [employer] PROGRESS NOTE. LARY
== END ==
LOC: M PAIN 10:15
PROVIDERS: ATTEND Nurse Practitioner Family
DX: G89.29 Other chronic pain (principal); M54.40 Lumbago with sciatica, unspecified side; J30.2 Other seasonal allergic rhinitis; Z88.0 Allergy status to penicillin; Z88.1 Allergy status to other antibiotic agents; Z88.5 Allergy status to narcotic agent; Z88.8 Allergy status to other drugs, medicaments and biological substances; Z79.82 Long term (current) use of aspirin; Z79.1 Long term (current) use of non-steroidal anti-inflammatories (NSAID); Z79.899 Other long term (current) drug therapy; Z87.891 Personal history of nicotine dependence

== ENCOUNTER → 2017-06-20 | Outpatient (REF) ==
[2017-06-21 09:44] LABS: RUBELLA IgG QUALITATIVE IMMUNE (IMMUNE)
[2017-06-21 10:14] LABS: RUBEOLA IgG ANTIBODY <25.0 AU/mL (Immune >29.9)
== END ==
LOC: M LAB 09:16
DX: Z02.9 Encounter for administrative examinations, unspecified (principal)

== ENCOUNTER 2017-07-08 14:59 | Emergency (ER) | payer OTHER | END 2017-07-08 17:00 | disposition left against medical advice (07) | LOC: M ED 14:59 | DX: R10.9 Unspecified abdominal pain (principal); Z53.21 Procedure and treatment not carried out due to patient leaving prior to being seen by health care provider ==